=== PATIENT | male | born 1980 | race Hispanic/Latino ===

== ENCOUNTER 2022-09-14 17:24 | Inpatient (IN) | payer BC ==
--- NOTE | 2022-09-14 17:52 | RAD REPORT ---
EXAM DESCRIPTION: RAD - Chest Single View - 09/14/2022 5:46 pm CLINICAL HISTORY: CHEST PAIN Chest pain. COMPARISON: <Comparisons> FINDINGS: Portable technique limits examination quality. The lungs are grossly clear. The heart is normal in size. No displaced fractures. IMPRESSION: No acute intrathoracic process suspected.
[2022-09-14 17:59] LABS: Absolute Lymphocytes (CBC) 1.1 K/uL (0.7-4.9); Hematocrit 48.6 % (39.6-49.0); Lymphocytes % 6.6 % (15.3-44.8); MPV 8.6 fL (7.6-11.3); RBC Red Blood Cell Count 5.52 M/uL (4.33-5.43)
[2022-09-14] MEDS ORDERED: ACETAMINOPHEN 500 MG TAB ONE (18:00)
[2022-09-14] MEDS ORDERED: MORPHINE 4 MG/ML SYR ONE (18:01)
[2022-09-14] MEDS ORDERED: ONDANSETRON 4 MG/2 ML VIAL ONE ×2 (18:01→20:52)
[2022-09-14] MEDS ORDERED: FAMOTIDINE 20 MG/2 ML VIAL IV ONE (18:01)
[2022-09-14] MEDS ORDERED: NA CHLORIDE 0.9% 1,000 ML ONE ×3 (18:01→22:56)
[2022-09-14 18:22] LABS: ALT/SGPT 36 U/L (16-61); Albumin 3.8 g/dL (3.4-5.0); Alkaline Phosphatase 83 U/L (45-117); BUN Blood Urea Nitrogen 19 mg/dL (7-18); Bicarbonate 26 mEq/L (21-32); Bilirubin Total 1.1 mg/dL (0.2-1.0); Glomerular Filtration Rate 111 ml/min (=/>90); Glucose Level 203 mg/dL (74-106); Lipase 22 U/L (13-75); Protein, Total 7.5 g/dL (6.4-8.2); Sodium Level 136 mEq/L (136-145)
[2022-09-14 18:23] LABS: AST/SGOT 16 U/L (15-37); Potassium 3.9 mEq/L (3.5-5.1); Troponin High Sensitivity < 3.0 pg/mL (<58.9)
--- NOTE | 2022-09-14 19:39 | RAD REPORT ---
EXAM DESCRIPTION: CTAbdomen Pelvis W Contrast - 09/14/2022 7:32 pm CLINICAL HISTORY: Abdominal pain. ABD PAIN COMPARISON: <Comparisons> TECHNIQUE: Biphasic CT imaging of the abdomen and pelvis was performed with 100 ml non-ionic IV cont rast. All CT scans are performed using dose optimization technique as appropriate and may include automated exposure control or mA/KV adjustment according to patient size. FINDINGS: The lung bases are clear.Small hiatal hernia. The liver, spleen, pancreas, adrenal glands and kidneys are within normal limits. No bowel obstruction, free air, free fluid or abscess. Appendix is dilated to 15 mm with moderate leung rrounding fluid compatible with acute appendicitis. No evidence of significant lymphadenopathy. No suspicious bony findings. IMPRESSION: Acute appendicitis.
--- NOTE | 2022-09-14 20:04 | EDPHYS ---
Physician Documentation [facility] Name: Phillip Post Age: 41 yrs Sex: Male : 1980 Arrival Date: 09/14/2022 Time: 17:24 Bed 4 Private MD: ED Physician Wilfrido Mccoy HPI: 09/14 17:47 This 41 yrs old Male presents to ER via Ambulatory with complaints of RLQ kb PAIN, Chest Pain. 17:47 The patient presents with abdominal pain right lower quadrant. Onset: The kb symptoms/episode began/occurred last night. The symptoms do not radiate. Associated signs and symptoms: Pertinent positives: chest pain, Pertinent negatives: nausea, vomiting, and diarrhea, fever. The symptoms are described as constant. Modifying factors: The symptoms are alleviated by nothing, the symptoms are aggravated by pressure. Severity of pain: At its worst the pain was moderate in the emergency department the pain is unchanged. The patient has not experienced similar symptoms in the past. The patient has not recently seen a physician. Pt reports RLQ pain and left chest pain that started at 2100 last night. Denies f/n/v/d, shortness of breath. . Historical: - Allergies: 17:32 No Known Allergies; ld1 - PMHx: 17:32 Hypertensive disorder; Hypercholesterolemia; Diabetes mellitus; ld1 - Immunization history:: Adult Immunizations up to date, Client reports receiving the 2nd dose of the Covid vaccine. - Social history:: Smoking status: Patient denies any tobacco usage or history of. Patient/guardian denies using alcohol. ROS: 17:46 Constitutional: Negative for fever, chills, and weight loss. kb 17:46 Cardiovascular: Positive for chest pain, Negative for edema, orthopnea, palpitations, paroxysmal nocturnal dyspnea. 17:46 Abdomen/GI: Positive for abdominal pain, Negative for nausea, vomiting, and diarrhea. 17:46 All other systems are negative. Exam: 17:46 Constitutional: This is a well developed, well nourished patient who is awake, alert, kb and in no acute distress. Head/Face: Normocephalic, atraumatic. ENT: Moist Mucous membranes Cardiovascular: Regular rate and rhythm with a normal S1 and S2. No gallops, murmurs, or rubs. No pulse deficits. Respiratory: Respirations even and unlabored. No increased work of breathing. Talking in full sentences Skin: Warm, dry with normal turgor. Normal color. MS/ Extremity: Pulses equal, no cyanosis. Neurovascular intact. Full, normal range of motion. Neuro: Awake and alert, GCS 15, oriented to person, place, time, and situation. Moves all extremities. Normal gait. 17:46 Abdomen/GI: Inspection: abdomen appears normal, Bowel sounds: normal, Palpation: soft, in all quadrants, moderate abdominal tenderness, in the right lower quadrant, Indicators: McBurney's point is tender. 17:49 ECG was reviewed by the Attending Physician. kb Vital Signs: 17:31 BP 160 / 87; Pulse 104; Resp 18; Temp 100.8(O); Pulse Ox 98% on R/A; Weight 97.52 kg; ld1 Height 5 ft. 8 in. ; Pain 10/10; 18:04 BP 127 / 73; Pulse 90; Resp 18; Pulse Ox 100% ; mb9 18:46 BP 119 / 78; Pulse 92; Resp 18; Temp 99.3(O); Pulse Ox 100% on R/A; mb9 20:43 BP 135 / 87; Pulse 91; Resp 17; Pulse Ox 99% ; vc1 17:31 Body Mass Index 32.69 (97.52 kg, 172.72 cm) ld1 17:31 Pain Scale: Adult ld1 MDM: 17:30 Patient medically screened. kb 17:46 Differential diagnosis: nephrolithiasis, diverticulitis, appendicitis. Data reviewed: kb vital signs, nurses notes. 19:19 Transition of care: After a detail discussion of the patient's case, care is kb transferred to Fan PAVON. 21:19 ED course: patient meets SIRS criteria: source of infection is appendix, WBC >16, temp cp of 100.8. 09/14 17:33 Order name: CBC with Diff; Complete Time: 18:25 kb 09/14 19:57 Interpretation: Normal except: WBC 16.80; RBC 5.52; FREDRICK% 87.2; LYM% 6.6; NEUT A 14.6. cp 09/14 17:33 Order name: CMP; Complete Time: 18:25 kb 09/14 17:33 Order name: Lipase; Complete Time: 18:25 kb 09/14 17:33 Order name: Troponin High Sensitivity; Complete Time: 18:25 kb 09/14 19:57 Order name: Blood Culture Adult (2) 09/14 19:57 Order name: Lactate w/ 2H reflex if indic.; Complete Time: 21:26 cp 09/14 17:33 Order name: CT Abd/Pelvis - IV Contrast Only; Complete Time: 19:53 kb 09/14 19:53 Interpretation: Report reviewed. 09/14 17:33 Order name: Chest Single View XRAY; Complete Time: 17:54 kb 09/14 17:33 Order name: EKG; Complete Time: 17:34 kb 09/14 17:33 Order name: IV Saline Lock; Complete Time: 17:56 kb 09/14 17:33 Order name: Labs collected and sent; Complete Time: 17:56 kb 09/14 17:33 Order name: EKG - Nurse/Tech; Complete Time: 18:05 kb 09/14 19:59 Order name: NPO; Complete Time: 20:46 cp EC:49 Rate is 90 beats/min. Rhythm is regular. QRS [place] is Normal. AL interval is normal at kb 140 msec. QRS interval is normal at 100 msec. QT interval is normal at 450 msec. Administered Medications: 17:45 Drug: NS 0.9% IV 1000 ml Route: IV; Rate: 1 bolus; Site: left antecubital; mb9 18:54 Follow up: Response: No adverse reaction; IV Status: Completed infusion mb9 17:45 Drug: Acetaminophen PO 1000 mg Route: PO; mb9 18:35 Follow up: Response: No adverse reaction mb9 17:47 Drug: Ondansetron IVP 4 mg Route: IVP; Site: left antecubital; mb9 18:35 Follow up: Response: No adverse reaction mb9 17:50 Drug: Famotidine IVP 20 mg Route: IVP; Site: left antecubital; mb9 18:35 Follow up: Response: No adverse reaction mb9 17:55 Drug: morphine IVP or IV 4 mg Route: IVP; Infused Over: 4 mins; Site: left antecubital; mb9 18:35 Follow up: Response: No adverse reaction mb9 20:52 Drug: Piperacillin-Tazobactam IVPB 3.375 grams {Note: GAVE TO OR NURSE TO ADMINISTER vc1 DURING SURGERY.} Route: IVPB; Infused Over: 60 mins; Site: Other; 20:53 Follow up: IV Status: CONTINUED TO OR vc1 20:52 Drug: morphine IVP or IV 2 mg Route: IVP; Infused Over: 4 mins; Site: left antecubital; vc1 21:05 Follow up: Response: Administer at transfer to OR vc1 21:04 Not Given (PT WENT TO [facility]): morphine IVP or IV 2 mg IVP once over 4 mins vc1 Disposition Summary: 09/14/22 20:04 Hospitalization Ordered Hospitalization Status: Inpatient Admission cp Provider: Marry Palacio cp Location: Telemetry/MedSurg (Inpatient) cp Condition: Stable cp Problem: new cp Symptoms: have improved cp Bed/Room Type: Standard cp Room Assignment: 215(09/14/22 20:52) cg Diagnosis - Acute appendicitis with localized peritonitis cp - Sepsis, unspecified organism cp Forms: - Medication Reconciliation Form cp - SBAR form cp Signatures: Dispatcher [employer] EDMS Giana Baker FNP-Tania TOBINP-Fan Redding PA PA cp Garcia, Cindy, RN RN cg Yamila Birmingham RN RN ld1 Caitlin Enriquez RN RN vc1 Marry Palacio PA-C PAReji sb4 Alma Rice RN RN mb9 Corrections: (The following items were deleted from the chart) 20:52 20:04 cp cg
--- NOTE | 2022-09-14 20:04 | ER ---
Nurse's Notes [facility] Name: Phillip Post Age: 41 yrs Sex: Male : 1980 Arrival Date: 09/14/2022 Time: 17:24 Bed 4 Private MD: Diagnosis: Acute appendicitis with localized peritonitis;Sepsis, unspecified organism Presentation: 09/14 17:31 Chief complaint: Patient states: RLQ pain since this morning. Upper left chest pain. ld1 Coronavirus screen: At this time, the client does not indicate any symptoms associated with coronavirus-19. Ebola Screen: No symptoms or risks identified at this time. Initial Sepsis Screen: Does the patient meet any 2 criteria? No. Patient's initial sepsis screen is negative. Does the patient have a suspected source of infection? No. Patient's initial sepsis screen is negative. Risk Assessment: Do you want to hurt yourself or someone else? Patient reports no desire to harm self or others. Onset of symptoms was September 14, 2022 at 17:32. 17:31 Method Of Arrival: Ambulatory ld1 17:31 Acuity: KADE 3 ld1 Triage Assessment: 17:32 General: Appears in no apparent distress. uncomfortable, Behavior is calm, cooperative, ld1 appropriate for age. Pain: Complains of pain in anterior aspect of left upper chest, left breast and right lower quadrant Pain does not radiate. Pain currently is 10 out of 10 on a pain scale. Quality of pain is described as throbbing. EENT: No signs and/or symptoms were reported regarding the EENT system. Neuro: Level of Consciousness is awake, alert, obeys commands, Oriented to person, place, time, situation. Cardiovascular: Capillary refill < 3 seconds Patient's skin is warm and dry. Respiratory: Airway is patent Respiratory effort is even, unlabored. GI: Abdomen is flat, non-distended, Reports lower abdominal pain. : No signs and/or symptoms were reported regarding the genitourinary system. Derm: No signs and/or symptoms reported regarding the dermatologic system. Musculoskeletal: No signs and/or symptoms reported regarding the musculoskeletal system. Historical: - Allergies: 17:32 No Known Allergies; ld1 - PMHx: 17:32 Hypertensive disorder; Hypercholesterolemia; Diabetes mellitus; ld1 - Immunization history:: Adult Immunizations up to date, Client reports receiving the 2nd dose of the Covid vaccine. - Social history:: Smoking status: Patient denies any tobacco usage or history of. Patient/guardian denies using alcohol. Screenin:08 [facility] ED Fall Risk Assessment (Adult) History of falling in the last 3 months, mb9 including since admission No falls in past 3 months (0 pts) Confusion or Disorientation No (0 pts) Intoxicated or Sedated No (0 pts) Impaired Gait No (0 pts) Mobility Assist Device Used No (0 pt) Altered Elimination No (0 pt) Score/Fall Risk Level 0 - 2 = Low Risk Oriented to surroundings, Maintained a safe environment, Educated pt \T\ family on fall prevention, incl call for assistance when getting out of bed. Abuse screen: Denies threats or abuse. Nutritional screening: No deficits noted. Tuberculosis screening: No symptoms or risk factors identified. Assessment: 18:03 General: Appears uncomfortable, Behavior is calm, cooperative. Pain: Complains of pain mb9 in right lower quadrant Pain radiates to chest Pain currently is 10 out of 10 on a pain scale. Quality of pain is described as throbbing, Pain began 1 day ago. Is continuous. Neuro: Elliott Agitation-Sedation Scale (RASS): 0 - Alert and Calm Level of Consciousness is awake, alert, obeys commands, Oriented to person, place, time, situation, Appropriate for age. Cardiovascular: Heart tones S1 S2 present Patient's skin is warm and dry. Rhythm is regular. Respiratory: Airway is patent Respiratory effort is even, unlabored, Respiratory pattern is regular, symmetrical, Breath sounds are clear bilaterally. GI: Abdomen is round non-distended, Bowel sounds present X 4 quads. Abd is soft Abdomen is tender to palpation in right lower quadrant Reports nausea. Derm: Skin is pink, warm \T\ dry. Musculoskeletal: Range of motion: intact in all extremities. 19:37 General: Appears in no apparent distress. comfortable, Behavior is calm, cooperative. lg3 Pain: Complains of pain in right lower quadrant Pain currently is 4 out of 10 on a pain scale. Neuro: No deficits noted. Elliott Agitation-Sedation Scale (RASS): 0 - Alert and Calm Level of Consciousness is awake, alert, obeys commands, Oriented to person, place, time, situation. Cardiovascular: No deficits noted. Denies chest pain, shortness of breath, Capillary refill < 3 seconds Clubbing of nail beds is absent JVD is absent Patient's skin is warm and dry. Respiratory: No deficits noted. Airway is patent Respiratory effort is even, unlabored, Respiratory pattern is regular, symmetrical. GI: No deficits noted. Abdomen is round non-distended, Reports lower abdominal pain. : No deficits noted. No signs and/or symptoms were reported regarding the genitourinary system. EENT: No deficits noted. No signs and/or symptoms were reported regarding the EENT system. Derm: No deficits noted. No signs and/or symptoms reported regarding the dermatologic system. Skin is intact, is healthy with good turgor, Skin is dry, Skin is normal, Skin temperature is warm. Musculoskeletal: No deficits noted. No signs and/or symptoms reported regarding the musculoskeletal system. Circulation, motion, and sensation intact. Range of motion: intact in all extremities. 20:50 Reassessment: No changes from previously documented assessment. Patient and/or family vc1 updated on plan of care and expected duration. Pain level reassessed. Patient is alert, oriented x 3, equal unlabored respirations, skin warm/dry/pink. Patient states symptoms have not improved. OR Nurse at bedside to take pt to OR. Vital Signs: 17:31 BP 160 / 87; Pulse 104; Resp 18; Temp 100.8(O); Pulse Ox 98% on R/A; Weight 97.52 kg; ld1 Height 5 ft. 8 in. ; Pain 10/10; 18:04 BP 127 / 73; Pulse 90; Resp 18; Pulse Ox 100% ; mb9 18:46 BP 119 / 78; Pulse 92; Resp 18; Temp 99.3(O); Pulse Ox 100% on R/A; mb9 20:43 BP 135 / 87; Pulse 91; Resp 17; Pulse Ox 99% ; vc1 17:31 Body Mass Index 32.69 (97.52 kg, 172.72 cm) ld1 17:31 Pain Scale: Adult ld1 ED Course: 17:26 Patient arrived in ED. im 17:30 G[facility] Baker F[facility]-C [facility] kb 17:30 Wilfrido Mccoy MD is Attending Physician. kb 17:30 EKG done, by ED staff, reviewed by Giana ROTHMAN. mb9 17:32 Triage completed. ld1 17:32 Arm band placed on right wrist. ld1 17:40 Kelvin Thomas, RN is Primary Nurse. bp 17:48 Chest Single View XRAY In Process Unspecified. EDMS 17:56 CBC with Diff Sent. zm 17:56 CMP Sent. zm 17:56 Lipase Sent. zm 17:56 Inserted saline lock: 20 gauge in left antecubital area, using aseptic technique. Blood zm collected. 18:03 Primary Nurse role handed off by Kelvin Thomas, NANCY mb9 18:03 Alma Rice, NANCY is Primary Nurse. mb9 18:05 Placed in gown. Bed in low position. Call light in reach. Side rails up X 1. Client mb9 placed on continuous cardiac and pulse oximetry monitoring. NIBP monitoring applied. clinical research monitor on. 18:09 No provider procedures requiring assistance completed. mb9 19:18 PHCP role handed off by Giana Baker FNP-C cp 19:18 Fan Kan PA is PHCP. cp 19:34 CT Abd/Pelvis - IV Contrast Only In Process Unspecified. EDMS 20:03 Marry Palacio PA-C is Hospitalizing Provider. cp 21:05 Blood Culture Adult (2) Sent. vc1 21:05 Lactate w/ 2H reflex if indic. Sent. vc1 Administered Medications: 17:45 Drug: NS 0.9% IV 1000 ml Route: IV; Rate: 1 bolus; Site: left antecubital; mb9 18:54 Follow up: Response: No adverse reaction; IV Status: Completed infusion mb9 17:45 Drug: Acetaminophen PO 1000 mg Route: PO; mb9 18:35 Follow up: Response: No adverse reaction mb9 17:47 Drug: Ondansetron IVP 4 mg Route: IVP; Site: left antecubital; mb9 18:35 Follow up: Response: No adverse reaction mb9 17:50 Drug: Famotidine IVP 20 mg Route: IVP; Site: left antecubital; mb9 18:35 Follow up: Response: No adverse reaction mb9 17:55 Drug: morphine IVP or IV 4 mg Route: IVP; Infused Over: 4 mins; Site: left antecubital; mb9 18:35 Follow up: Response: No adverse reaction mb9 20:52 Drug: Piperacillin-Tazobactam IVPB 3.375 grams {Note: GAVE TO OR NURSE TO ADMINISTER vc1 DURING SURGERY.} Route: IVPB; Infused Over: 60 mins; Site: Other; 20:53 Follow up: IV Status: CONTINUED TO OR vc1 20:52 Drug: morphine IVP or IV 2 mg Route: IVP; Infused Over: 4 mins; Site: left antecubital; vc1 21:05 Follow up: Response: Administer at transfer to OR vc1 21:04 Not Given (PT WENT TO [facility]): morphine IVP or IV 2 mg IVP once over 4 mins vc1 Medication: 18:05 VIS not applicable for this client. mb9 Outcome: 20:04 Decision to Hospitalize by Provider. cp 21:26 Patient left the ED. sb4 Signatures: Dispatcher [employer] EDMS Giana Baker, PROJECT OFFICER-C PROJECT OFFICER-Fan Redding PA PA cp Peltier, Brian, RN NANCY bp Radha Kaba RN RN lg3 Yamila Birmingham RN RN ld1 Caitlin Enriquez RN RN 1 Karin Post Sophia PA-Tania PA-C sb4 Alma Rice RN RN mb9 Rosario Berman
--- NOTE | 2022-09-14 20:16 | P.HP ---
Certification for Inpatient Patient admitted to: Inpatient With expected LOS: <2 Midnights Patient will require the following post-hospital care: None Practitioner: I am a practitioner with admitting privileges, knowledge of patient current condition, hospital course, and medical plan of care. Services: Services provided to patient in accordance with Admission requirements found in Title 42 Section 412.3 of the Code of Federal Regulations Patient History Date of Service: 09/14/22 Primary Care Provider: Sara Hall Reason for admission: Appendicitis History of Present Illness: Mr. Post is a 41 year old male with past medical history of hypertension, hyperlipidemia, and non-insulin dependent type 2 diabetes who presented to the emergency department with complaints of right lower quadrant abdominal pain and left sided chest pain that began this morning. His EKG was unremarkable, troponin negative. Labs are significant for leukocytosis. Lactate pending. He does meet sepsis criteria as he was tachycardic and febrile. CT abdomen pelvis showed "Appendix is dilated to 15 mm with moderate surrounding fluid compatible with acute appendicitis." Dr Post was contacted and will take patient to OR tonight for laprascopic appendectomy. He was started on zosyn in the emergency department. Will admit for further management. Home medications list reviewed: Yes - Past Medical/Surgical History Diabetic: Yes -: Hypertension -: Hyperlipidemia -: Type 2 Diabetes, Non-Insulin Dependent Past Surgical History: Patient denies surgical history Psychosocial/ Personal History: Patient is . - Family History Family History: Reviewed- Non-Contributory - Social History Smoking Status: Never smoker Alcohol use: No CD- Drugs: No Caffeine use: Yes Place of Residence: Home Review of Systems 10-point ROS is otherwise unremarkable Cardiovascular: Chest Pain Gastrointestinal: Abdominal Pain Physical Examination - Vital Signs Temperature: 99.3 F Blood Pressure: 119/78 Pulse: 92 Respirations: 18 Pulse Ox (%): 100 - Physical Exam General: Alert, In no apparent distress HEENT: Atraumatic, EOMI, Sclerae nonicteric Neck: Supple, 2+ carotid pulse no bruit Respiratory: Clear to auscultation bilaterally, Normal air movement Cardiovascular: Regular rate/rhythm, Normal S1 S2 Gastrointestinal: No rebound, No guarding, Tenderness (RLQ) Musculoskeletal: No tenderness Integumentary: No rashes Neurological: Normal speech, Normal affect - Studies Laboratory Data (last 24 hrs) 09/14/22 17:38: Sodium 136, Potassium 3.9, BUN 19 H, Creatinine 0.86, Glucose 203 H, Total Bilirubin 1.1 H, AST 16, ALT 36, Alkaline Phosphatase 83, Lipase 22 09/14/22 17:38: WBC 16.80 H, Hgb 16.2, Hct 48.6, Plt Count 176 Assessment and Plan - Problems (Diagnosis) (1) Acute appendicitis Current Visit: Yes Status: Acute Qualifiers: Acute appendicitis type: with localized peritonitis Appendicitis gangrene presence: without gangrene Appendicitis perforation presence: without perforation Appendicitis abscess presence: without abscess Qualified Code(s): K35.30 - Acute appendicitis with localized peritonitis, without perforation or gangrene (2) Sepsis Current Visit: Yes Status: Acute Qualifiers: Sepsis type: sepsis due to unspecified organism Sepsis acute organ dysfunction status: without acute organ dysfunction Qualified Code(s): A41.9 - Sepsis, unspecified organism (3) Hypertension Current Visit: Yes Status: Chronic Qualifiers: Hypertension type: primary hypertension Qualified Code(s): I10 - Essential (primary) hypertension (4) Hyperlipidemia Current Visit: Yes Status: Chronic Qualifiers: Hyperlipidemia type: mixed hyperlipidemia Qualified Code(s): E78.2 - Mixed hyperlipidemia (5) Type 2 diabetes mellitus Current Visit: Yes Status: Chronic Qualifiers: Diabetes mellitus computer terminal operator insulin use: without computer terminal operator use Diabetes mellitus complication status: with hyperglycemia Qualified Code(s): E11.65 - Type 2 diabetes mellitus with hyperglycemia - Plan Patient is admitted for further management of acute appendicitis. Dr. Post to take patient to OR tonight for laprascopic appendectomy. Continue antibiotics, PRN pain medications and antiemetics. Meets sepsis criteria with tachycardia, fever, leukocytosis. Lactate pending. Blood cultures obtained. Monitor on telemetry given chest pain. Repeat troponin in AM. Will additionally check lipid panel, A1c, TSH. Glucose monitoring and control with sliding scale. Monitor and replete electrolytes per protocol. Reconcile and continue home medications when cleared for PO intake. Lovenox for VTE prophylaxis. Full code. Discharge Plan: Home Plan to discharge in: 48 Hours - Advance Directives Does patient have a Living Will: No Does patient have a Durable POA for Healthcare: No - Code Status/Comfort Care Code Status Assessed: Yes Code Status: Full Code Physician Review: Patient Assessed, Agree with Above Assessment and Plan Critical Care: No Time Spent Managing Pts Care (In Minutes): 50
[2022-09-14] MEDS ORDERED: ONDANSETRON 4 MG/2 ML VIAL IV PRN (20:39)
[2022-09-14] MEDS ORDERED: ROCURONIUM 50 MG/5 ML VIAL IV ONE ×2 (20:50→20:52)
[2022-09-14] MEDS ORDERED: LIDOCAINE 1% MPF 5 ML VIAL ONE ×2 (20:50→20:52)
[2022-09-14] MEDS ORDERED: FENTANYL CITR 100 MCG/2 ML ONE (20:50)
[2022-09-14] MEDS ORDERED: MIDAZOLAM HCL 2 MG/2 ML INJ ONE (20:50)
[2022-09-14] MEDS ORDERED: GLYCOPYRROLATE 0.2 MG/ML SYR ONE (20:51)
[2022-09-14] MEDS ORDERED: dexAMETHasone 4 MG/ML VIAL ONE (20:51)
[2022-09-14] MEDS ORDERED: KETOROLAC 30 MG/ML INJ ONE (20:52)
[2022-09-14] MEDS ORDERED: propofoL 200 MG/20 ML VIAL IV ONE (20:56)
[2022-09-14] MEDS ORDERED: NA CHLORIDE 0.9% 100 ML ONE (20:57)
[2022-09-14] MEDS ORDERED: PIPERACIL/TAZO 3.375 GM VIAL IV ONE (20:57)
[2022-09-14] MEDS ORDERED: MORPHINE 2 MG/ML SYR ONE (20:57)
[2022-09-14] MEDS ORDERED: NEOSTIGMINE 1 MG/ML -10 ML VIAL ONE (20:59)
[2022-09-14] MEDS: NA CHLORIDE 0.9% 1,000 ML IV SCH (21:00)
--- NOTE | 2022-09-14 21:35 | P.BOP ---
Preoperative diagnosis: diabetes, peritonitis, acute appendicitis, htn Postoperative diagnosis: same Primary procedure: Laparoscopic appendectomy Estimated blood loss: <10cc Specimen: citlalli Findings: as above Anesthesia: General Transferred to: Recovery Room Condition: Good
--- NOTE | 2022-09-15 00:21 | CON ---
Date of Consultation: 09/14/2022 Reason For Service: Acute appendicitis. History Of Present Illness: This is the case of a 41-year-old patient with history of hypertension, hyperlipidemia, diabetes, who presented to the ER with abdominal pain that started yesterday, right l ower quadrant, associated with anorexia. The patient usually does not miss work. Today, he did not feel like going to work. He ate some food yesterday at home with his family. Nobody else got sick. No dysuria, hematuria, hematochezia, or melena. No recent traveling out of the country. No family member is sick at home. No previous colonoscopies. Review of Systems: See HPI. Include nausea, low-grade fever, vomiting, abdominal pain. Ten points otherwise unremarkab le. Past Medical History: Hyperlipidemia, hypertension, diabetes. Past Surgical History: None. Social History: He does not smoke. He does not drink alcohol. Allergies: NO KNOWN ALLERGIES. Physical Examination: General: The patient is awake, alert. HEENT: Pupils are equal and reactive. Anicteric. Neck: Supple. Chest: Clear. Heart: S1, S2. Abdomen: Abdominal tenderness with periumbilical right lower quadrant with peritonitis present. Rov sing sign positive. Psoas signs positive. Genitalia and Rectal: Deferred. Extremities: Good capillary refill. Laboratory Data: Blood work shows a WBC count of 16.8, hemoglobin of 16.2, platelets of 176. Glucos e of 203, BUN is 19, lipase 72. CAT scan of the abdomen and pelvis interpreted by Dr. Nowak as acute appendicitis. Assessment: This is a 41-year-old patient with multiple medical problems including acute appendiciti s, the benefits, alternatives, and risks of laparoscopy, possible open appendectomy fully explained, which include, but not limited to infection, bleeding, damage to adjacent structures, anesthesia comp lication, abscess, OK, and even . He also understands this may not relieve any symptoms. He mi ght need more than one surgical intervention. He understands also the importance of following up wit h his primary doctor for his diabetes control. HM/MODL Voice ID: [id number] Report ID: [id number]
[2022-09-15 00:43] VITALS: BMI 31.1
[2022-09-15] MEDS: PIPER TAZO 3.375 GM in NA CHLORIDE 0.9% 100 ML IV SCH ×3 (00:45→16:37)
[2022-09-15] MEDS: INSULIN -REGULAR HUMAN 50 UNIT/0.5 ML ML SQ SCH ×4 (00:46→18:00)
[2022-09-15] MEDS: MORPHINE 4 MG/ML SYR IV PRN ×2 (00:53→04:40)
--- NOTE | 2022-09-15 02:52 | OP ---
Date of Procedure: 09/14/2022 Surgeon: Ralph Post MD Preoperative Diagnoses: Peritonitis, abdominal pain, acute appendicitis, hypertension, diabetes. Postoperative Diagnoses: Perforated appendicitis, peritonitis. Procedures: Laparoscopic perforated appendectomy. Anesthesia: General plus local. Complications: None. Findings: Perforated appendicitis at the mid third of the appendix with fixed contamination. Complications: None. Indication: This is the case of a 41-year-old patient, who comes to us with acute abdominal pain. F negraly explained the benefits, alternatives, and risks of laparoscopic possible open appendectomy after I fully diagnosed, which include, but not limited to, infection, bleeding, damage to adjacent struct ures, anesthesia complications, abscess, OR, and even . He also understands this may not reliev e symptoms. He might need more than one surgical intervention. He understood, signed a consent. Th e patient was emergently booked in OR. Procedure In Detail: The patient was brought to the operating room, placed in supine position. Anes thesia was without complication. Abdominal area was prepped and draped in the usual sterile fashion. Local anesthesia was applied followed by sharp incision in the skin in the periumbilical region. I ncision was carried down to fascia, which was opened under direct vision. Vicryl #1 placed inside th e fascia. Marisa trocar was carefully introduced. Pneumoperitoneum was obtained. I placed 2 more t rocars, 5 mm each one of them, 1 in the suprapubic area, another one in the left lower quadrant using the same technique, which consisted of local anesthetic, sharp incision of the skin and introduction of the trocars under direct vision. This allowed me to visualize the area and immediately upon ente ring the abdomen, noted the patient to have peritonitis. We also unfortunately saw some fecal contam ination at the mid part of the appendix. Once we explored the area, we noticed the patient to have i nflammation of peritonitis of the mesoappendix, very friable area. We noticed that his perforation i s about the connection between the first, third, and second third of the appendix. At this moment, w e have to use LigaSure to be able to release some adhesions the patient had in that region and then a fter that, we released the appendix. We were able to find the space and create a window in the base of the appendix and transect that with an Endo ANN 45 mm nonvascular. We have to do this sequentiall y since we have to get very close to the cecum to obtain negative margins. Further hemostasis was ob tained with the help of hemoclips. Profuse irrigation of the area was done with at least 4 L of flui d. Suction was done in that area due to the contamination and we proceeded to leave a CORRY drain over there, exiting to one of the trocar sites. We inspected the area until we have complete hemostasis a nd that was with the help of the LigaSure and also the hemoclips as described before. At that moment , I proceeded to remove the trocars under direct vision. Deflated the pneumoperitoneum. Closed the fascia with #1 Vicryl. Irrigated subcutaneous tissue and closed that with 3-0 chromic and barry. CORRY was connected to bulb suction and secured in place with 3-0 nylon. The patient will remain in the hospital for several days, bowel rest, we expect peritonitis, we expect ileus, and also, assess the patient on his diabetes. HM/MODL Voice ID: [id number] Report ID: [id number]
[2022-09-15 04:02] LABS: Absolute Lymphocytes (CBC) 0.7 K/uL (0.7-4.9); Lymphocytes % 7.7 % (15.3-44.8); MPV 9.6 fL (7.6-11.3); RBC Red Blood Cell Count 4.94 M/uL (4.33-5.43)
[2022-09-15 04:36] LABS: BUN Blood Urea Nitrogen 19 mg/dL (7-18); Bicarbonate 24 mEq/L (21-32); Glomerular Filtration Rate 115 ml/min (=/>90); Glucose Level 203 mg/dL (74-106); Magnesium 1.9 mg/dL (1.6-2.4); Potassium 3.6 mEq/L (3.5-5.1); Sodium Level 138 mEq/L (136-145); Thyroid Stimulating Hormone 0.253 uIU/mL (0.358-3.740); Troponin High Sensitivity < 3.0 pg/mL (<58.9)
[2022-09-15 04:37] LABS: Phosphorus 1.4 mg/dL (2.5-4.9)
[2022-09-15] MEDS ORDERED: POTASSIUM PHOS IN 0.9 % NACL 15 MMOL/250 ML BAG IV ONE (04:46)
[2022-09-15] MEDS ORDERED: ENOXAPARIN 40 MG/0.4 ML SQ SCH (09:00)
[2022-09-15] MEDS: NA CHLORIDE 0.9% 1,000 ML IV SCH (09:14)
[2022-09-15] MEDS ORDERED: POTASSIUM CL SA 10 MEQ TAB PO ONE (10:00)
--- NOTE | 2022-09-15 12:36 | EKG ---
Test Date: 2022-09-14 Test Time: 17:45:58 Title Closer: MB MEASUREMENT RESULTS: Intervals: Rate: 90 SD: 140 QRSD: 100 QT: 368 QTc: 450 [place]: P: 56 SD: 140 QRS: -28 T: 54 INTERPRETIVE STATEMENTS: Normal sinus rhythm Normal ECG Compared to ECG 09/06/2012 09:16:02 Left ventricular hypertrophy no longer present Electronically Signed On 09-15-22 12:34:41 CDT by Karlos Delgado
[2022-09-15] MEDS: HYDROCODONE/APAP 5/325 MG TAB PO PRN ×2 (13:50→20:00)
--- NOTE | 2022-09-15 14:07 | P.PN ---
Subjective Date of Service: 09/15/22 Primary Care Provider: Sara Hall Chief Complaint: Appendicitis Status post lap appendectomy last night. Patient states that he feels thirsty, otherwise no other complaint. No fever. Physical Examination - Vital Signs Temperature: 100.5 F Blood Pressure: 114/62 Pulse: 113 Respirations: 16 Pulse Ox (%): 91 - Studies Laboratory Data (last 24 hrs) 09/14/22 17:38: Sodium 136, Potassium 3.9, BUN 19 H, Creatinine 0.86, Glucose 203 H, Total Bilirubin 1.1 H, AST 16, ALT 36, Alkaline Phosphatase 83, Lipase 22 09/14/22 17:38: WBC 16.80 H, Hgb 16.2, Hct 48.6, Plt Count 176 Assessment And Plan - Current Problems (Diagnosis) (1) Acute appendicitis Current Visit: Yes Status: Acute Qualifiers: Acute appendicitis type: with localized peritonitis Appendicitis gangrene presence: without gangrene Appendicitis perforation presence: without p erforation Appendicitis abscess presence: without abscess Qualified Code(s): K35.30 - Acute appendicitis with localized peritonitis, without perforation or gangrene (2) Hypertension Current Visit: Yes Status: Chronic Qualifiers: Hypertension type: primary hypertension Qualified Code(s): I10 - Essential (primary) hypertension (3) Type 2 diabetes mellitus Current Visit: Yes Status: Chronic Qualifiers: Diabetes mellitus 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 Surgery Dr. Post is concerned about impending peritonitis and ileus. Aggressive antibiotic therapy. Ice chips and sips. Serial abdominal examination Insulin sliding scale for glucose management. Activity as tolerated. Monitor and correct electrolytes as needed.
[2022-09-15] MEDS: D5NS KCL 20MEQ 20 MEQ/1,000 ML BAG IV SCH (16:44)
[2022-09-15 20:31] LABS: Specific Gravity > 1.030 (1.005-1.030); Urine Bacteria <20 /HPF (<20); Urine Bilirubin NEGATIVE (Negative); Urine Blood Negative (Negative); Urine Clarity Clear (Clear); Urine Color Yellow (Yellow); Urine Glucose 4+ (Over) (Negative); Urine Mucus 2+ /HPF (None Seen); Urine Protein 1+ (Negative); Urine Urobilinogen Normal (Normal); Urine pH 5.5 (5.0-7.0)
[2022-09-16] MEDS: D5NS KCL 20MEQ 20 MEQ/1,000 ML BAG IV SCH ×3 (00:35→18:20)
[2022-09-16] MEDS: PIPER TAZO 3.375 GM in NA CHLORIDE 0.9% 100 ML IV SCH ×3 (00:35→18:20)
[2022-09-16] MEDS: HYDROCODONE/APAP 5/325 MG TAB PO PRN ×2 (00:41→06:27)
[2022-09-16 03:00] LABS: Absolute Lymphocytes (CBC) 1.4 K/uL (0.7-4.9); Hematocrit 40.2 % (39.6-49.0); Lymphocytes % 13.9 % (15.3-44.8); MCV 88.7 fL (80-100); MPV 8.6 fL (7.6-11.3); RBC Red Blood Cell Count 4.53 M/uL (4.33-5.43)
[2022-09-16 03:18] LABS: Potassium 3.6 mEq/L (3.5-5.1)
[2022-09-16] MEDS: INSULIN -REGULAR HUMAN 50 UNIT/0.5 ML ML SQ SCH ×5 (06:00→23:43)
[2022-09-16] MEDS: ENOXAPARIN 40 MG/0.4 ML SQ SCH (10:53)
[2022-09-16] MEDS: MORPHINE 4 MG/ML SYR IV PRN ×3 (10:53→23:51)
--- NOTE | 2022-09-16 13:36 | P.PN ---
Subjective Date of Service: 09/16/22 Primary Care Provider: Sara Hall Chief Complaint: Appendicitis Status post lap appendectomy 09/15. Patient has no new complaint. He states his abdominal pain is better today. No fever. Physical Examination - Vital Signs Temperature: 97.9 F Blood Pressure: 117/68 Pulse: 106 Respirations: 16 Pulse Ox (%): 95 Assessment And Plan - Current Problems (Diagnosis) (1) Acute appendicitis Current Visit: Yes Status: Acute Qualifiers: Acute appendicitis type: with localized peritonitis Appendicitis gangrene presence: without gangrene Appendicitis perforation presence: without perforation Appendicitis abscess presence: without abscess Qualified Code(s): K35.30 - Acute appendicitis with localized peritonitis, without perforation or gangrene (2) Hypertension Current Visit: Yes Status: Chronic Qualifiers: Hypertension type: primary hypertension Qualified Code(s): I10 - Essential (primary) hypertension (3) Type 2 diabetes mellitus Current Visit: Yes Status: Chronic Qualifiers: Diabetes mellitus 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 Normal bowel sounds. Musculoskeletal: No tenderness Integumentary: No rashes Neurological: No focal motor deficit. Patient noted to have perforated appendix. Surgery Dr. Post is concerned about impending peritonitis and ileus. Blood culture is growing gram-negative rods. Continue IV Zosyn Repeat blood culture Infectious disease consult. Ice chips and sips. Serial abdominal examination Insulin sliding scale for glucose management. Activity as tolerated. Monitor and correct electrolytes as needed.
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
[2022-09-17] MEDS: PIPER TAZO 3.375 GM in NA CHLORIDE 0.9% 100 ML IV SCH ×2 (00:04→07:45)
[2022-09-17 03:17] LABS: Absolute Lymphocytes (CBC) 1.6 K/uL (0.7-4.9); Hematocrit 39.5 % (39.6-49.0); MCV 88.4 fL (80-100); MPV 8.7 fL (7.6-11.3); RBC Red Blood Cell Count 4.46 M/uL (4.33-5.43)
[2022-09-17 03:32] LABS: Phosphorus 1.4 mg/dL (2.5-4.9); Potassium 3.7 mEq/L (3.5-5.1)
[2022-09-17] MEDS ORDERED: POTASSIUM PHOS IN 0.9 % NACL 15 MMOL/250 ML BAG IV ONE (04:29)
[2022-09-17] MEDS: INSULIN -REGULAR HUMAN 50 UNIT/0.5 ML ML SQ SCH ×3 (06:00→17:54)
[2022-09-17] MEDS: D5NS KCL 20MEQ 20 MEQ/1,000 ML BAG IV SCH ×2 (07:00→11:09)
[2022-09-17] MEDS: MORPHINE 4 MG/ML SYR IV PRN (07:45)
[2022-09-17] MEDS: ENOXAPARIN 40 MG/0.4 ML SQ SCH (07:45)
--- NOTE | 2022-09-17 09:38 | PN ---
Date of Progress Note: 09/17/2022 Diagnosis: Perforated appendicitis. Patient is doing better. No nausea, no vomiting today. Started passing flatus. Afebrile. Physical Examination: Chest: Clear. Abdomen: Soft and depressible. Intact surgical site. Extremities: Good capillary refill. Blood work is reviewed. Plan: We are going to advance diet to full liquid diet. We anticipate discharge in the next 48 hour s if medically he is okay. The primary doctor is working on his diabetes medications. ESTRADA/YASIR Voice ID: [id number] Report ID: [id number]
[2022-09-17] MEDS: Meropenem 1,000 MG in NA CHLORIDE 0.9% 100 ML IV SCH ×2 (11:09→16:50)
[2022-09-17] MEDS: HYDROCODONE/APAP 5/325 MG TAB PO PRN ×3 (11:09→21:35)
--- NOTE | 2022-09-17 14:13 | P.PN ---
Subjective Date of Service: 09/17/22 Primary Care Provider: Sara Hall Chief Complaint: Appendicitis Status post lap appendectomy 09/15. Patient has no new complaint. He states his abdominal pain is under control. He reports no pain at rest but some pain with movement. No fever. Physical Examination - Vital Signs Temperature: 97.9 F Blood Pressure: 133/81 Pulse: 89 Respirations: 18 Pulse Ox (%): 96 Assessment And Plan - Current Problems (Diagnosis) (1) Acute appendicitis Current Visit: Yes Status: Acute Qualifiers: Acute appendicitis type: with localized peritonitis Appendicitis gangrene presence: without gangrene Appendicitis perforation presence: without perforation Appendicitis abscess presence: without abscess Qualified Code(s): K35.30 - Acute appendicitis with localized peritonitis, without perforation or gangrene (2) Hypertension Current Visit: Yes Status: Chronic Qualifiers: Hypertension type: primary hypertension Qualified Code(s): I10 - Essential (primary) hypertension (3) Type 2 diabetes mellitus Current Visit: Yes Status: Chronic Qualifiers: 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 Normal bowel sounds. Musculoskeletal: No tenderness Integumentary: No rashes Neurological: No focal motor deficit. Plan: S/P lap appendectomy for perforated appendix Surgery Dr. Post is concerned about impending peritonitis and ileus. Blood culture is growing ESBL E. coli. Antibiotics changed to IV meropenem Repeat blood culture shows no growth today Infectious disease input appreciated. Patient may need prolonged outpatient IV antibiotics. Surgery Dr. Post has advanced patient's diet to full liquids Serial abdominal examination. CORRY drain is in place. Insulin sliding scale for glucose management. Activity as tolerated. Monitor and correct electrolytes as needed.
[2022-09-18] MEDS: D5NS KCL 20MEQ 20 MEQ/1,000 ML BAG IV SCH ×3 (02:36→23:00)
[2022-09-18] MEDS: Meropenem 1,000 MG in NA CHLORIDE 0.9% 100 ML IV SCH ×3 (02:39→19:29)
[2022-09-18] MEDS: HYDROCODONE/APAP 5/325 MG TAB PO PRN ×3 (04:20→20:37)
[2022-09-18 05:51] LABS: Phosphorus 1.8 mg/dL (2.5-4.9); Potassium 3.6 mEq/L (3.5-5.1)
[2022-09-18] MEDS ORDERED: POTASSIUM PHOS IN 0.9 % NACL 15 MMOL/250 ML BAG IV ONE (07:00)
[2022-09-18] MEDS: INSULIN -REGULAR HUMAN 50 UNIT/0.5 ML ML SQ SCH ×4 (07:30→20:37)
[2022-09-18] MEDS: ENOXAPARIN 40 MG/0.4 ML SQ SCH (08:57)
--- NOTE | 2022-09-18 12:59 | PN ---
Date of Progress Note: 09/18/2022 Diagnoses: Perforated appendicitis, peritonitis. Subjective: The patient is doing better. No abdominal pain. No nausea, no vomiting. Tolerating di et, passing flatus, and having bowel movement this morning. The patient is afebrile. No shortness o f breath. No chest pain. Physical Examination: Chest: Clear. Abdomen: Soft and depressible. Intact surgical site. Bowel sounds positive and CORRY drain draining s erosanguineous. Extremity: No calf tenderness. Plan: Once he completed the antibiotics today, we will have no objection since the patient wants to go home to continue the antibiotics at home. Once again, even medical doctor believe it is okay sinc e he also had diabetes and they to have that issue under control, but at least from my standpoint, if he do want to go home tonight or tomorrow morning, it is okay as long as he will come this Monday to my office and take his antibiotics and continue with the CORRY until he comes to my office. ESTRADA/YASIR Voice ID: [id number] Report ID: [id number]
--- NOTE | 2022-09-18 13:45 | P.PN ---
Subjective Date of Service: 09/18/22 Primary Care Provider: Sara Hall Chief Complaint: Appendicitis Status post lap appendectomy 09/15. Patient has no new complaint. He states his abdominal pain is under control. He states that he has been ambulatory. Leukocytosis resolved. Physical Examination - Vital Signs Temperature: 97.6 F Blood Pressure: 119/75 Pulse: 83 Respirations: 18 Pulse Ox (%): 96 Assessment And Plan - Current Problems (Diagnosis) (1) Acute appendicitis Current Visit: Yes Status: Acute Qualifiers: Acute appendicitis type: with localized peritonitis Appendicitis gangrene presence: without gangrene Appendicitis perforation presence: without perforation Appendicitis abscess presence: without abscess Qualified Code(s): K35.30 - Acute appendicitis with localized peritonitis, without perforation or gangrene (2) Hypertension Current Visit: Yes Status: Chronic Qualifiers: Hypertension type: primary hypertension Qualified Code(s): I10 - Essential (primary) hypertension (3) Type 2 diabetes mellitus Current Visit: Yes Status: Chronic Qualifiers: Diabetes mellitus retirement insulin 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 Normal bowel sounds. CORRY drain in place Musculoskeletal: No tenderness Integumentary: No rashes Neurological: No focal motor deficit. Plan: S/P lap appendectomy for perforated appendix Surgery Dr. Post is concerned about impending peritonitis and ileus. Blood culture: ESBL E. coli. Continue IV meropenem Repeat blood culture shows no growth today Infectious disease is following. Patient may need prolonged outpatient IV antibiotics. Patient may need PICC line for outpatient IV antibiotics. Infectious disease to follow Surgery Dr. Post is following. Diet advanced to solid. Serial abdominal examination. CORRY drain is in place. Insulin sliding scale for glucose management. Activity as tolerated. Monitor and correct electrolytes as needed.
[2022-09-19 03:14] VITALS: O2SAT 96
[2022-09-19] MEDS ORDERED: NA CHLORIDE 0.9% 100 ML ONE (03:28)
[2022-09-19] MEDS ORDERED: Meropenem 1000 MG/VIAL IV ONE (03:28)
[2022-09-19] MEDS: Meropenem 1,000 MG in NA CHLORIDE 0.9% 100 ML IV SCH ×2 (03:30→10:58)
[2022-09-19] MEDS: HYDROCODONE/APAP 5/325 MG TAB PO PRN (03:31)
[2022-09-19 04:15] LABS: Phosphorus 2.2 mg/dL (2.5-4.9)
[2022-09-19] MEDS: INSULIN -REGULAR HUMAN 50 UNIT/0.5 ML ML SQ SCH ×4 (07:30→16:29)
[2022-09-19] MEDS: ENOXAPARIN 40 MG/0.4 ML SQ SCH (09:00)
[2022-09-19] MEDS: POTASS/SODIUM PHOSPHATE 1 PKT POWD.PACK PO SCH ×3 (09:41→09:45)
--- NOTE | 2022-09-19 09:46 | P.PN ---
Date of Service: 09/19/22 Chief Complaint: Appendicitis Subjective: Patient seen and examined at bedside. Overall improving. Denies any new or worsening complaints. A&Ox4. Breathing comfortably on room air. Physical Examination Temp Pulse Resp BP Pulse Ox 97.6 F 70 18 144/87 H 98 09/19/22 08:00 09/19/22 08:00 09/19/22 08:00 09/19/22 08:00 09/19/22 08:00 General: Alert, In no apparent distress, Oriented x3 HEENT: Atraumatic, Normocephalic Neck: Supple, JVD not distended Respiratory: Clear to auscultation bilaterally, Normal air movement Cardiovascular: No edema, Normal pulses Gastrointestinal: Normal bowel sounds, Tenderness Musculoskeletal: No clubbing, No swelling Integumentary: No rashes, No breakdown, Surgical incision sites dressing clean dry and intact. CORRY drain noted. Neurological: Normal speech, Normal tone, Normal affect Laboratory Data - Reviewed Microbiology Data - Reviewed Imagings Data: - Reviewed Medication List: Reviewed Assessment and Plan Problem List Acute appendicitis s/p laparascopic appendectomy Diabetes Mellitus type II Hypertension Hyperlipidemia Bacteremia Bacteremia - Blood cultures 09/14: E.coli ESBL - Repeat blood cultures 09/16: No growth to date - Zosyn (09/15) switched to Merrem on 09/17. - Leukocytosis, improving (WBC 8.6) - Afebrile Recommendations - Bacteremia: Continue Merrem/Invanz x 14 days (started 09/17) - Patient to follow up with surgery team as outpatient for drain removal - Strict blood glucose control Case discussed with Jenny Tee
[2022-09-19] MEDS: D5NS KCL 20MEQ 20 MEQ/1,000 ML BAG IV SCH (10:57)
--- NOTE | 2022-09-19 13:54 | P.DS ---
Admission Date: 09/14/22 Discharge Date: 09/19/22 Primary Care Provider: Sara Hall Disposition: ROUTINE DISCHARGE Discharge Condition: FAIR Reason for Admission: Appendicitis - Problems (1) Acute appendicitis Current Visit: Yes Status: Acute Qualifiers: Acute appendicitis type: with localized peritonitis Appendicitis gangrene presence: without gangrene Appendicitis perforation presence: without perforation Appendicitis abscess presence: without abscess Qualified Code(s): K35.30 - Acute appendicitis with localized peritonitis, without perforation or gangrene (2) Hypertension Current Visit: Yes Status: Chronic Qualifiers: Hypertension type: primary hypertension Qualified Code(s): I10 - Essential (primary) hypertension (3) Type 2 diabetes mellitus Current Visit: Yes Status: Chronic Qualifiers: Diabetes mellitus meeting facilitator insulin use: without meeting facilitator use Diabetes mellitus complication status: with hyperglycemia Qualified Code(s): E11.65 - Type 2 diabetes mellitus with hyperglycemia (4) Gram-negative bacteremia Current Visit: Yes Status: Acute Brief History of Present Illness: Mr. Post is a 41 year old male with past medical history of hypertension, hyperlipidemia, and non-insulin dependent type 2 diabetes who presented to the emergency department with complaints of right lower quadrant abdominal pain and left sided chest pain that began this morning. His EKG was unremarkable, troponin negative. Labs are significant for leukocytosis. Lactate pending. He did meet sepsis criteria as he was tachycardic and febrile. CT abdomen pelvis showed Appendix dilated to 15 mm with moderate surrounding fluid compatible with acute appendicitis. Dr Post was contacted who recommended laproscopic appendectomy. He was started on zosyn in the emergency department and admitted for further management. Hospital Course: S/P lap appendectomy for perforated appendix Surgery Dr. Post was concerned about impending peritonitis and ileus. Patient had leukocytosis. Blood culture: ESBL E. coli. Antibiotics changed to IV Merrem. Repeat blood culture showed no growth today Seen by infectious disease. Midline placed for outpatient IV antibiotics. 11 more days of IV Invanz recommended. Patient tolerated diet advancement to solid diet. CORRY drain is in place. Blood sugar was managed insulin sliding scale for glucose management. Patient has been ambulatory and tolerating diet. He is deemed stable for discharge per surgery. Vital Signs/Physical Exam: Temp Pulse Resp BP Pulse Ox 97.6 F 70 18 144/87 H 98 09/19/22 08:00 09/19/22 08:00 09/19/22 08:00 09/19/22 08:00 09/19/22 08:00 General: Alert, In no apparent distress HEENT: Mucous membr. moist/pink Neck: JVD not distended Respiratory: Clear to auscultation bilaterally, Normal air movement Cardiovascular: No edema, Regular rate/rhythm, Normal S1 S2 Gastrointestinal: Soft and benign, Non-distended, No tenderness Musculoskeletal: No swelling Integumentary: No rashes, No cyanosis Neurological: Normal strength at 5/5 x4 extr Laboratory Data at Discharge: WBC 8.60 thou/uL (4.3-10.9) 09/17/22 02:54 Hgb 13.3 g/dL (13.6-17.9) L 09/17/22 02:54 Hct 39.5 % (39.6-49.0) L 09/17/22 02:54 Plt Count 150 thou/uL (152-406) L 09/17/22 02:54 Sodium 137 mEq/L (136-145) 09/19/22 03:13 Potassium 4.0 mEq/L (3.5-5.1) 09/19/22 03:13 BUN 9 mg/dL (7-18) 09/19/22 03:13 Creatinine 0.69 mg/dL (0.70-1.30) L 09/19/22 03:13 Glucose 191 mg/dL (74-106) H 09/19/22 03:13 Phosphorus 2.2 mg/dL (2.5-4.9) L 09/19/22 03:13 Magnesium 1.9 mg/dL (1.6-2.4) 09/15/22 02:31 Total Bilirubin 1.1 mg/dL (0.2-1.0) H 09/14/22 17:38 AST 16 U/L (15-37) 09/14/22 17:38 ALT 36 U/L (16-61) 09/14/22 17:38 Alkaline Phosphatase 83 U/L (45-117) 09/14/22 17:38 Triglycerides 74 mg/dL (<150) 09/15/22 02:13 Cholesterol 149 mg/dL (<200) 09/15/22 02:13 HDL Cholesterol 52 mg/dL (40-60) 09/15/22 02:13 Cholesterol/HDL Ratio 2.87 09/15/22 02:13 Lipase 22 U/L (13-75) 09/14/22 17:38 Home Medications: Empagliflozin [Jardiance] 10 mg PO DAILY 09/14/22 Glimepiride [Amaryl*] 2 mg PO DAILY 09/14/22 Losartan Potassium [Cozaar] 100 mg PO DAILY 09/14/22 Lovastatin 20 mg PO DAILY 09/14/22 Hydrocodone 5/APAP 325 [[place] 5/325*] 1 tab PO Q4H PRN #15 tab 09/19/22 Mupirocin Calcium [Bactroban Nasal*] 1 appl CRISTINA BID #1 tube 09/19/22 New Medications: Mupirocin Calcium [Bactroban Nasal*] 1 appl CRISTINA BID #1 tube Hydrocodone 5/APAP 325 [[place] 5/325*] 1 tab PO Q4H PRN #15 tab PRN Reason: Pain Scale 5-7 (Moderate) Followup: Sara Leon NP [Primary Care Provider] - 1-2 Weeks Ralph Post MD [ACTIVE - CAN ADMIT] - 1 Week Time spent managing pt's care (in minutes): 33
[2022-09-19] MEDS ORDERED: ERTAPENEM NA 1 GM in NA CHLORIDE 0.9% 100 ML IVPB ONE (16:00)
[2022-09-19 16:48] VITALS: BP 146/85; TEMP 97.5
[2022-09-19] MEDS ORDERED: Mupirocin NASAL 2 APPL/1 GM TUBE NAS SCH (21:00)
== END 2022-09-19 18:11 | disposition home or self-care (01) | DRG 853 ==
LOC: ER 17:24 → ERHOLD 20:10 → 2ND 21:14
PROVIDERS: ADMIT Internal Medicine; ATTEND Internal Medicine
PROC: 0DTJ4ZZ Resection of Appendix, Percutaneous Endoscopic Approach (ICD-10-PCS; principal; 2022-09-14 21:00)
DX: A41.51 Sepsis due to Escherichia coli [E. coli] (principal); K35.32 Acute appendicitis with perforation, localized peritonitis, and gangrene, without abscess; K56.7 Ileus, unspecified; Z16.12 Extended spectrum beta lactamase (ESBL) resistance; I10 Essential (primary) hypertension; E78.2 Mixed hyperlipidemia; E11.65 Type 2 diabetes mellitus with hyperglycemia; Z79.84 Long term (current) use of oral hypoglycemic drugs; Z79.899 Other long term (current) drug therapy
CPT/HCPCS: 36415; 71045; 74177; 80048; 80053; 80061; 81001; 82947; 83036; 83605; 83690; 83735; 84100; 84443; 84484; 85025; 87040; 87077; 87186; 87205; 88304; 93005; 94010; 99285; J1100; J1335; J1650; J1815; J2001; J2185; J2250; J2270; J2405; J2543; J2704; J2710; J3010; J3480; J7030

== ENCOUNTER 2022-11-07 08:15 | Day surgery (SDC) | payer BC ==
[2022-11-07] MEDS ORDERED: NA CHLORIDE 0.9% 1,000 ML ONE (08:43)
[2022-11-07] MEDS ORDERED: LIDOCAINE 1% MPF 30 ML VIAL ONE (08:47)
[2022-11-07] MEDS ORDERED: GLYCOPYRROLATE 0.2 MG/ML SYR ONE (08:47)
[2022-11-07] MEDS ORDERED: propofoL 200 MG/20 ML VIAL IV ONE (08:47)
[2022-11-07 12:33] VITALS: BP 103/60; TEMP 97.7; O2SAT 98
== END 2022-11-07 10:37 | disposition home or self-care (01) ==
LOC: OR 08:15
PROVIDERS: ATTEND Surgery
PROC: 0DBL8ZX Excision of Transverse Colon, Via Natural or Artificial Opening Endoscopic, Diagnostic (ICD-10-PCS; principal; 2022-11-07 09:45)
DX: Z12.11 Encounter for screening for malignant neoplasm of colon (principal); K64.4 Residual hemorrhoidal skin tags; K64.8 Other hemorrhoids; K57.30 Diverticulosis of large intestine without perforation or abscess without bleeding; K63.5 Polyp of colon; E11.9 Type 2 diabetes mellitus without complications; I10 Essential (primary) hypertension; E78.00 Pure hypercholesterolemia, unspecified
CPT/HCPCS: 82947; 88305; 45384; J2704; J2001; J7030

== ENCOUNTER 2023-02-20 16:44 | Emergency (ER) | payer BC ==
--- OUTSIDE RECORDS SUMMARY | 2023-02-20 16:48 | XMS REPORT | Continuity of Care Document ---
:1980 Author Organization [facility] t Address [address] [facility] [address] [place] [address] Care Team Providers Name Role Phone EppingSara Attending Clinician Unavailable Payers Payer Name Policy Type Policy Number Effective Date Expiration Date S vania [employer] 6 [id number] 2020 Common Spiri t Blue Shield of 00:00:00 - [facility] AETNA C1 [id number] [facility] Problems Condition Condition Condition Status Onset Resolution Last Treating Co mments Source Name Details Category Date Date Treatment Clinician Date [id number] Encounter Problem Com mon for Spirit general - [facility] adult [facility] examinatio Medica l n without Center abnormal findings [id number] Other male Problem Co mmon erectile Spirit dysfunctio - [facility] n [facility] [id number] Status Problem Common post Spirit appendecto - [facility] my [facility] [id number] Type 2 Problem Common diabetes Spirit mellitus - [facility] with [facility] long-term current use of insulin Hypertensi Hypertensi Problem C ommon on on Spirit - [facility] [id number] Obesity Problem Commo n (BMI Spirit 30-39.9) [facility] [id number] Obstructiv Problem Com mon e sleep Spirit apnea - [facility] (adult) ([facility] ) [facility] Allergies, Adverse Reactions, Alerts This patient has no known allergies or adverse reactions. Social History Social Habit Start Date Stop Date Quantity Comments Source History of Tobacco Use Co mmon [facility] Sex Assigned At Com mon [facility] Smoking Status Start Date Stop Date Source Never Smoker Common [facility] Medications Ordered Filled Start Stop Current Ordering Indication Dosage Frequency Signature Comments Components Source Medication Medication Date Date Medication? Clinician (SIG) Name Name Viagra 100 Viagra 100 2020- No 1{table QD Viagra 100 MG MG 08-18 t_as_ne MG 00:00: 00:00 eded} 00 :00 Sildenafil Sildenafil 2019-03- No 1{table QD Sildenafil Citrate 100 Citrate 100 04-23 t_as_ne Citrate MG MG 00:00: 00:00 eded} 100 MG 00 :00 Jardiance Jardiance No Jardiance 10 MG 10 MG 10 MG Multi Multi No 1{table QD Multi Vitamin Vitamin t} Vitamin Daily - Daily - Daily - Glimepiride Glimepiride No Glimepirid 2 MG 2 MG e 2 MG Lovastatin Lovastatin No Lovastatin 20 MG 20 MG 20 MG Jardiance Jardiance No Jardiance 10 MG 10 MG 10 MG Airborne Airborne No Airborne Losartan Losartan No 1{table QD Losartan Potassium Potassium t} Potassium 50 MG 50 MG 50 MG Multi Multi No 1{table QD Multi Vitamin Vitamin t} Vitamin Daily - Daily - Daily - Glimepiride Glimepiride No Glimepirid 2 MG 2 MG e 2 MG Lovastatin Lovastatin No Lovastatin 20 MG 20 MG 20 MG Jardiance Jardiance No Jardiance 10 MG 10 MG 10 MG Airborne Airborne No Airborne Losartan Losartan No 1{table QD Losartan Potassium Potassium t} Potassium 50 MG 50 MG 50 MG Multi Multi No 1{table QD Multi Vitamin Vitamin t} Vitamin Daily - Daily - Daily - Losartan Losartan No Losartan Potassium Potassium Potassium 50 MG 50 MG 50 MG Glimepiride Glimepiride No QD Glimepirid 2 MG 2 MG e 2 MG Jardiance Jardiance No Jardiance 10 MG 10 MG 10 MG Lovastatin Lovastatin No Lovastatin 20 MG 20 MG 20 MG Lovastatin Lovastatin No Lovastatin 20 MG 20 MG 20 MG Losartan Losartan No Losartan Potassium Potassium Potassium 50 MG 50 MG 50 MG Multi Multi No 1{table QD Multi Vitamin Vitamin t} Vitamin Daily - Daily - Daily - Jardiance Jardiance No Jardiance 10 MG 10 MG 10 MG Glimepiride Glimepiride No QD Glimepirid 2 MG 2 MG e 2 MG Jardiance Jardiance No Jardiance 10 MG 10 MG 10 MG Multi Multi No 1{table QD Multi Vitamin Vitamin t} Vitamin Daily - Daily - Daily - Lovastatin Lovastatin No Lovastatin 20 MG 20 MG 20 MG Glimepiride Glimepiride No Glimepirid 2 MG 2 MG e 2 MG Losartan Losartan No Losartan Potassium Potassium Potassium 50 MG 50 MG 50 MG Lovastatin Lovastatin No Lovastatin 20 MG 20 MG 20 MG Losartan Losartan No Losartan Potassium Potassium Potassium 50 MG 50 MG 50 MG Jardiance Jardiance No Jardiance 10 MG 10 MG 10 MG Glimepiride Glimepiride No Glimepirid 2 MG 2 MG e 2 MG Multi Multi No 1{table QD Multi Vitamin Vitamin t} Vitamin Daily - Daily - Daily - Jardiance Jardiance Yes Sara TAKE 1 Co mmon Epping TABLET BY Spirit MOUTH ONCE - CHI DAILY [facility] Lovastatin Lovastatin Yes Sara TAKE 1 Common Epping TABLET BY Spirit MOUTH ONCE - CHI DAILY [facility] Glimepiride Glimepiride Yes Sara take 1 Common Epping tablet by Spirit mouth once - CHI daily [facility] Losartan Losartan Yes Sara TAKE 1 Comm on Potassium Potassium Epping TABLET BY Spirit MOUTH ONCE - [facility]I DAILY [facility] Multi Multi Yes Sara 1 tablet Common Vitamin Vitamin Epping Spirit Daily Daily - [facility] Lovastatin Lovastatin No Lovastatin 20 MG 20 MG 20 MG Multi Multi No 1{table QD Multi Vitamin Vitamin t} Vitamin Daily - Daily - Daily - Glimepiride Glimepiride No Glimepirid 2 MG 2 MG e 2 MG Jardiance Jardiance No Jardiance 10 MG 10 MG 10 MG Losartan Losartan No Losartan Potassium Potassium Potassium 50 MG 50 MG 50 MG Multi Multi No 1{table QD Multi Vitamin Vitamin t} Vitamin Daily - Daily - Daily - Lovastatin Lovastatin No Lovastatin 20 MG 20 MG 20 MG Losartan Losartan No 1{table QD Losartan Potassium Potassium t} Potassium 50 MG 50 MG 50 MG Glimepiride Glimepiride No Glimepirid 2 MG 2 MG e 2 MG Airborne Airborne No Airborne Jardiance Jardiance No Jardiance 10 MG 10 MG 10 MG Multi Multi No 1{table QD Multi Vitamin Vitamin t} Vitamin Daily - Daily - Daily - Lovastatin Lovastatin No Lovastatin 20 MG 20 MG 20 MG Losartan Losartan No 1{table QD Losartan Potassium Potassium t} Potassium 50 MG 50 MG 50 MG Glimepiride Glimepiride No Glimepirid 2 MG 2 MG e 2 MG Airborne Airborne No Airborne Immunizations Ordered Filled Immunization Date Status Comments Sour e Immunization Name Name Flucelvax - Flucelvax - 2018-02-15 Completed [facility] t multidose vial multidose vial 16:50:00 - [facility] Flucelvax - Flucelvax - 2018-02-15 Completed [facility] Spiri t multidose vial multidose vial 16:50:00 - [facility] Flucelvax - Flucelvax - 2018-02-15 Completed Common Spiri t multidose vial multidose vial 16:50:00 - [facility] Flucelvax - Flucelvax - 2018-02-15 Completed Common Spiri t multidose vial multidose vial 16:50:00 - [facility] Flucelvax - Flucelvax - 2018-02-15 Completed Common Spiri t multidose vial multidose vial 16:50:00 - [facility] Flucelvax - Flucelvax - Unknown Completed [facility] Sp[facility] t multidose vial multidose vial - [facility] Flucelvax - Flucelvax - Unknown Completed [facility] multidose vial multidose vial - [facility] Flucelvax - Flucelvax - Unknown Completed [facility] t multidose vial multidose vial - [facility] Flucelvax - Flucelvax - Unknown Completed [facility] Spiri t multidose vial multidose vial - [facility] Vital Signs Vital Name Observation Time Observation Value Comments Source height 2022-08-18 14:40:00 66 [in_i] Common S pirit [facility] weight 2022-08-18 14:40:00 210.8 [lb_av] Common Spirit [facility] temperature 2022-08-18 14:40:00 97.7 [degF] Common S pirit - [facility] bmi 2022-08-18 14:40:00 34.02 kg/m2 Common [facility] oximetry 2022-08-18 14:40:00 96 % [facility] respiratory rate 2022-08-18 14:40:00 15 /min Comm on [facility] blood pressure 2022-08-18 14:40:00 123 mm[Hg] Common [facility] - systolic [facility] blood pressure 2022-08-18 14:40:00 72 mm[Hg] Common [facility] - diastolic [facility] height 2022-05-23 08:00:00 66 [in_i] Common [facility] weight 2022-05-23 08:00:00 212.8 [lb_av] [facility] temperature 2022-05-23 08:00:00 97.7 [degF] Common [facility] bmi 2022-05-23 08:00:00 34.34 kg/m2 [facility] oximetry 2022-05-23 08:00:00 96 % [facility] respiratory rate 2022-05-23 08:00:00 15 /min Comm on [facility] blood pressure 2022-05-23 08:00:00 127 mm[Hg] Common [facility] - systolic [facility] blood pressure 2022-05-23 08:00:00 70 mm[Hg] Common [facility] - diastolic [facility] height 2022-02-21 09:00:00 66 [in_i] Common [facility] weight 2022-02-21 09:00:00 211 [lb_av] Common [facility] temperature 2022-02-21 09:00:00 97.6 [degF] [facility] bmi 2022-02-21 09:00:00 34.05 kg/m2 [facility] oximetry 2022-02-21 09:00:00 98 % Common [facility] respiratory rate 2022-02-21 09:00:00 17 /min Comm on [facility] blood pressure 2022-02-21 09:00:00 132 mm[Hg] Common [facility] - systolic [facility] blood pressure 2022-02-21 09:00:00 82 mm[Hg] Common [facility] - diastolic [facility] height 2021-08-18 08:00:00 66 [in_i] Common [facility] weight 2021-08-18 08:00:00 215 [lb_av] [facility] temperature 2021-08-18 08:00:00 98.2 [degF] [facility] bmi 2021-08-18 08:00:00 34.7 kg/m2 [facility] oximetry 2021-08-18 08:00:00 98 % [facility] respiratory rate 2021-08-18 08:00:00 16 /min Comm on [facility] blood pressure 2021-08-18 08:00:00 127 mm[Hg] Common [facility] - systolic [facility] blood pressure 2021-08-18 08:00:00 76 mm[Hg] Common [facility] diastolic [facility] height 2021-02-19 09:40:00 66 [in_i] Common [facility] weight 2021-02-19 09:40:00 220.8 [lb_av] Common [facility] temperature 2021-02-19 09:40:00 98.1 [degF] Common [facility] bmi 2021-02-19 09:40:00 35.63 kg/m2 [facility] oximetry 2021-02-19 09:40:00 98 % [facility] respiratory rate 2021-02-19 09:40:00 16 /min Comm on [facility] blood pressure 2021-02-19 09:40:00 128 mm[Hg] Common [facility] - systolic [facility] blood pressure 2021-02-19 09:40:00 70 mm[Hg] Common [facility] - diastolic [facility] height 2020-08-18 09:40:00 66 [in_i] Common [facility] weight 2020-08-18 09:40:00 208 [lb_av] Common [facility] temperature 2020-08-18 09:40:00 97.6 [degF] Common [facility] bmi 2020-08-18 09:40:00 33.57 kg/m2 [facility] oximetry 2020-08-18 09:40:00 99 % [facility] respiratory rate 2020-08-18 09:40:00 18 /min Comm on [facility] blood pressure 2020-08-18 09:40:00 119 mm[Hg] Common [facility] - systolic [facility] blood pressure 2020-08-18 09:40:00 82 mm[Hg] Common [facility] - diastolic [facility] height 2020-02-21 08:40:00 66 [in_i] Common [facility] weight 2020-02-21 08:40:00 215.2 [lb_av] [facility] temperature 2020-02-21 08:40:00 97.2 [degF] Common [facility] bmi 2020-02-21 08:40:00 34.73 kg/m2 Common [facility] oximetry 2020-02-21 08:40:00 96 % Common [facility] respiratory rate 2020-02-21 08:40:00 16 /min Comm on [facility] blood pressure 2020-02-21 08:40:00 124 mm[Hg] Common [facility] - systolic [facility] blood pressure 2020-02-21 08:40:00 77 mm[Hg] Common [facility] diastolic [facility] Procedures This patient has no known procedures. Encounters Start End Encounter Admission Attending Care Care Encounter Source Date/Time Date/Time Type Type Clinicians Facility Department ID 2023-02-16 Outpatient Carolyn, STLMLC STLMLC [id number] Common 14:49:00 Sara [id number] [facility] 2022-02-17 Outpatient Carolyn, STLMLC STLMLC [id number] Common 16:30:01 Sara [id number] [facility] 2021-04-14 Outpatient Carolyn, STLMLC STLMLC [id number] Common 14:19:22 Sara [id number] [facility] 2021-04-14 Outpatient Carolyn, STLMLC STLMLC [id number] Common 12:09:47 Sara [id number] [facility] 2022-08-18 2022-08-18 OFFICE STLMLC STLMLC [id number] Co mmon 00:00:00 00:00:00 VISIT [facility] ESTAB PT - CHI LEVEL 3 [facility] 2022-08-09 2022-08-09 (TEL) STLMLC STLMLC [id number] Co mmon 00:00:00 00:00:00 [facility] 2022-06-27 2022-06-27 (TEL) STLMLC STLMLC [id number] Co mmon 00:00:00 00:00:00 [facility] 2022-05-23 2022-05-23 OFFICE STLMLC STLMLC [id number] Co mmon 00:00:00 00:00:00 VISIT Spirit ESTAB PT - CHI LEVEL 4 [facility] 2022-02-21 2022-02-21 PREV VISIT STLMLC STLMLC [id number] Common 00:00:00 00:00:00 EST AGE [facility] 40-64 - CHI [facility] 2021-08-18 2021-08-18 OFFICE STLMLC STLMLC [id number] Co mmon 00:00:00 00:00:00 VISIT Spirit ESTAB PT - CHI LEVEL 4 [facility] 2021-02-19 2021-02-19 OFFICE STLMLC STLMLC [id number] Co mmon 00:00:00 00:00:00 VISIT Spirit ESTAB PT - CHI LEVEL 4 [facility] 2020-08-18 2020-08-18 OFFICE STLMLC STLMLC [id number] Co mmon 00:00:00 00:00:00 VISIT Spirit ESTAB PT - CHI LEVEL 4 [facility] 2020-02-21 2020-02-21 OFFICE STLMLC STLMLC [id number] Co mmon 00:00:00 00:00:00 VISIT Spirit ESTAB PT - CHI LEVEL 4 [facility] 2019-09-23 2019-09-23 [id number] Common 13:00:00 13:00:[address] [facility] 2019-09-19 2019-09-19 [facility] [id number] Common 13:10:00 13:10:[address] [facility] 2019-08-19 2019-08-19 [facility] [id number] Common 10:20:00 10:20:[address] [facility] 2019-02-20 2019-02-20 [facility] [id number] Common 11:40:00 11:40:[address] [facility] 2019-01-24 2019-01-24 [facility] [id number] Common 14:00:00 14:00:[address] [facility] 2018-09-04 2018-09-04 [facility] [id number] Common 13:00:00 13:00:[address] [facility] 2018-03-14 2018-03-14 [facility] [id number] Common 15:55:00 15:55:[address] [facility] 2017-10-30 2017-10-30 [facility] [id number] Common 18:21:00 18:21:[address] [facility] 2017-08-15 2017-08-15 [facility] [id number] Common 15:00:00 15:00:00 t [facility] [address] [facility] Results Test Description Test Time Test Comments Results Result Comments Source HEMOGLOBIN A1c 2022-08-12 00:00:00 Test Item Value Reference Range Interpretation Comme nts HEMOGLOBIN A1c (test code = 7.7 % See_Comment H [Automated message] The system 4548-4) which generated this result transmitted ref erence range: 4.2-5.6 %. The reference range was not used to int erpret this result as normal/abnor mal. ALBUMIN/CREATININE RATIO, RANDOM [id number] 00:00:00 Test Item Value Reference Range Interpretation Comments ALBUMIN, URINE, 0.2 MG/DL NOT ESTAB MG/DL RANDOM (test code = 37684-8) CALC ALBUMIN/CREAT, 2 MG/G See_Comment [Automa annie message] The RND (test code = system [employer] generated 23661-9) this result tra nsmitted reference range : <30 MG/G. The refer ence range was not u sed to interpret this result as normal/abnormal . CREATININE, URINE, 82.4 MG/DL NOT ESTAB MG/DL CONC. (test code = 2161-8) COMPREHENSIVE METABOLIC [id number] 00:00:00 Test Item Value Reference Range Interpretation Comments ALBUMIN (test code = 4.6 G/DL See_Comment [Autom ated message] 1751-7) The system [employer] generated this result transmit annie reference range : 3.5-5.2 G/DL. T he reference range was not used to interpret this result as normal/abnormal . ALKALINE PHOSPHATASE 90 U/L See_Comment [Autom ated message] (test code = 6768-6) The sys tem which generated this result transmit annie reference range : 40-119 U/L. The reference range was not used to interpret this result as normal/abnormal . BILIRUBIN, TOTAL 0.6 MG/DL See_Comment [Automated message] (test code = 1975-2) The sys tem which generated this result transmit annie reference range : <=1.2 MG/DL. Th e reference range was not used to interpret this result as normal/abnormal . BUN (test code = 22 MG/DL See_Comment H [Automated message] 3094-0) The system [employer] generated this result transmit annie reference range : 6-20 MG/DL. The reference range was not used to interpret this result as normal/abnormal . CALCIUM (test code = 9.6 MG/DL See_Comment [Autom ated message] 94801-0) The system [facility] generated this result transmit annie reference range : 8.5-10.5 MG/DL. The reference range was not used to interpret this result as normal/abnormal . CALC A/G RATIO (test 2.1 RATIO See_Comment [Autom ated message] code = 1759-0) The system [facility] generated this result transmit annie reference range : 1.0-2.6 RATIO. The reference range was not used to interpret this result as normal/abnormal . CALC BUN/CREAT (test 29 RATIO See_Comment H [Autom ated message] code = 3097-3) The system [facility] generated this result transmit annie reference range : 6-28 RATIO. The reference range was not used to interpret this result as normal/abnormal . CALC GLOBULIN (test 2.2 G/DL See_Comment [Automa annie message] code = 15330-5) The system [facility] generated this result transmit annie reference range : 1.9-3.7 G/DL. T he reference range was not used to interpret this result as normal/abnormal . CARBON DIOXIDE (test 24 MEQ/L See_Comment [Autom ated message] code = 1963-8) The system [facility] generated this result transmit annie reference range : 19-31 MEQ/L. Th e reference range was not used to interpret this result as normal/abnormal . CHLORIDE (test code 108 MEQ/L See_Comment H [Automa annie message] = 5-0) The system [facility] generated this result transmit annie reference range : 95-107 MEQ/L. T he reference range was not used to interpret this result as normal/abnormal . CREATININE (test 0.77 MG/DL See_Comment L [Automated message] code = 2160-0) The system [facility] generated this result transmit annie reference range : 0.80-1.40 MG/DL . The reference range was not used to interpret this result as normal/abnormal . eGFR (2020 CKD-EPI) 115 See_Comment [Automa annie message] (test code = ML/MIN/1.[address] [facility] 00830-0) generated this result transmit annie reference range : >60 ML/MIN/1.73. Th e reference range was not used to interpret this result as normal/abnormal . GLUCOSE (test code = 119 MG/DL See_Comment H [Autom ated message] 1558-6) The system [email or web address] generated this result transmit annie reference range : 70-99 MG/DL. Th e reference range was not used to interpret this result as normal/abnormal . POTASSIUM (test code 4.4 MEQ/L See_Comment [Autom ated message] = 2823-3) The system [email or web address] generated this result transmit annie reference range : 3.5-5.4 MEQ/L. The reference range was not used to interpret this result as normal/abnormal . PROTEIN, TOTAL (test 6.8 G/DL See_Comment [Autom ated message] code = 2885-2) The system [facility] generated this result transmit annie reference range : 6.1-8.3 G/DL. T he reference range was not used to interpret this result as normal/abnormal . AST (test code = 20 U/L See_Comment [Automated message] 1920-8) The system [email or web address] generated this result transmit annie reference range : 9-50 U/L. The reference range was not used to interpret this result as normal/abnormal . ALT (test code = 31 U/L See_Comment [Automated message] 8672-6) The system [email or web address] generated this result transmit annie reference range : 5-50 U/L. The reference range was not used to interpret this result as normal/abnormal . SODIUM (test code = 145 MEQ/L See_Comment [Automa annie message] 5081-2) The system [email or web address] generated this result transmit annie reference range : 133-146 MEQ/L. The reference range was not used to interpret this result as normal/abnormal . HEMOGLOBIN [id number] 00:00:00 Test Item Value Reference Range Interpretation Comments HEMOGLOBIN A1c (test 7.7 % See_Comment H [Autom ated message] The code = 4548-4) system which generated this result tra nsmitted reference range : 4.2-5.6 %. The referenc e range was not used to interpret this result as normal/abnormal . LIPID [id number] 00:00:00 Test Item Value Reference Range Interpretation Comments CHOLESTEROL (test code 190 MG/DL See_Comment [Aut omated message] = 2093-3) The system [facility] generated this result transmit annie reference range : <200 MG/DL. The reference range was not used to interpret this result as normal/abnormal . TRIGLYCERIDES (test 80 MG/DL See_Comment [Automa annie message] code = 2571-8) The system [employer] generated this result transmit annie reference range : <150 MG/DL. The reference range was not used to interpret this result as normal/abnormal . HDL CHOLESTEROL (test 51 MG/DL See_Comment [Auto mated message] code = 2085-9) The system [facility] generated this result transmit annie reference range : >39 MG/DL. The refe rence range was not u sed to interpret th is result as normal/abnormal . CALC LDL CHOL (test 122 MG/DL See_Comment H [Automa annie message] code = 49608-9) The system [employer] [facility] generated this result transmit annie reference range : <100 MG/DL. The reference range was not used to interpret this result as normal/abnormal . RISK RATIO LDL/HDL 2.39 RATIO See_Comment [Automat ed message] (test code = 84486-1) The sy stem which generated this result transmit annie reference range : <3.55 RATIO. Th e reference range was not used to interpret this result as normal/abnormal . ALBUMIN/CREATININE RATIO, RANDOM [id number] 00:00:00 Test Item Value Reference Range Interpretation Comments CREATININE, URINE, 76.3 MG/DL NOT ESTAB MG/DL CONC. (test code = 2161-8) ALBUMIN, URINE, 0.2 MG/DL NOT ESTAB MG/DL RANDOM (test code = 76282-5) CALC ALBUMIN/CREAT, 3 MG/G See_Comment [Automa annie message] The RND (test code = system [facility] generated 82288-5) this result tra nsmitted reference range : <30 MG/G. The refer ence range was not u sed to interpret this result as normal/abnormal . COMPREHENSIVE METABOLIC [id number] 00:00:00 Test Item Value Reference Range Interpretation Comments GLUCOSE (test code = 143 MG/DL See_Comment H [Autom ated message] 1558-6) The system [facility] generated this result transmit annie reference range : 70-99 MG/DL. Th e reference range was not used to interpret this result as normal/abnormal . BUN (test code = 19 MG/DL See_Comment [Automated message] 3094-0) The system [email or web address] generated this result transmit annie reference range : 6-20 MG/DL. The reference range was not used to interpret this result as normal/abnormal . CREATININE (test 0.85 MG/DL See_Comment [Automated message] code = 2160-0) The system [employer] generated this result transmit annie reference range : 0.80-1.40 MG/DL . The reference range was not used to interpret this result as normal/abnormal . eGFR (2020 CKD-EPI) 111 See_Comment [Automa annie message] (test code = ML/MIN/1.73 The system [facility] Rayn 86567-1) generated this result transmit annie reference range : >60 ML/MIN/1.73. Th e reference range was not used to interpret this result as normal/abnormal . CALC BUN/CREAT (test 22 RATIO See_Comment [Autom ated message] code = 3097-3) The system [employer] generated this result transmit annie reference range : 6-28 RATIO. The reference range was not used to interpret this result as normal/abnormal . SODIUM (test code = 140 MEQ/L See_Comment [Automa annie message] 2951-2) The system [employer] generated this result transmit annie reference range : 133-146 MEQ/L. The reference range was not used to interpret this result as normal/abnormal . POTASSIUM (test code 4.1 MEQ/L See_Comment [Autom ated message] = 8533-3) The system [facility] generated this result transmit annie reference range : 3.5-5.4 MEQ/L. The reference range was not used to interpret this result as normal/abnormal . CHLORIDE (test code 103 MEQ/L See_Comment [Automa annie message] = 6655-0) The system [facility] generated this result transmit annie reference range : 95-107 MEQ/L. T he reference range was not used to interpret this result as normal/abnormal . CARBON DIOXIDE (test 25 MEQ/L See_Comment [Autom ated message] code = 1963-8) The system [employer] generated this result transmit annie reference range : 19-31 MEQ/L. Th e reference range was not used to interpret this result as normal/abnormal . CALCIUM (test code = 9.4 MG/DL See_Comment [Autom ated message] 78573-5) The system [facility] generated this result transmit annie reference range : 8.5-10.5 MG/DL. The reference range was not used to interpret this result as normal/abnormal . PROTEIN, TOTAL (test 7.0 G/DL See_Comment [Autom ated message] code = 2885-2) The system [facility] generated this result transmit annie reference range : 6.1-8.3 G/DL. T he reference range was not used to interpret this result as normal/abnormal . ALBUMIN (test code = 4.6 G/DL See_Comment [Autom ated message] 1751-7) The system [facility] generated this result transmit annie reference range : 3.5-5.2 G/DL. T he reference range was not used to interpret this result as normal/abnormal . CALC GLOBULIN (test 2.4 G/DL See_Comment [Automa annie message] code = 14058-7) The system [facility] generated this result transmit annie reference range : 1.9-3.7 G/DL. T he reference range was not used to interpret this result as normal/abnormal . CALC A/G RATIO (test 1.9 RATIO See_Comment [Autom ated message] code = 1759-0) The system [facility] generated this result transmit annie reference range : 1.0-2.6 RATIO. The reference range was not used to interpret this result as normal/abnormal . BILIRUBIN, TOTAL 0.8 MG/DL See_Comment [Automated message] (test code = 1975-2) The sys tem which generated this result transmit annie reference range : <=1.2 MG/DL. Th e reference range was not used to interpret this result as normal/abnormal . ALKALINE PHOSPHATASE 98 U/L See_Comment [Autom ated message] (test code = 6768-6) The sys tem which generated this result transmit annie reference range : 40-119 U/L. The reference range was not used to interpret this result as normal/abnormal . AST (test code = 20 U/L See_Comment [Automated message] 1920-8) The system [facility] generated this result transmit annie reference range : 9-50 U/L. The reference range was not used to interpret this result as normal/abnormal . ALT (test code = 32 U/L See_Comment [Automated message] 2602-6) The system [employer] generated this result transmit annie reference range : 5-50 U/L. The reference range was not used to interpret this result as normal/abnormal . HEMOGLOBIN A1C Test Item Value Reference Range Interpretation Comments A1C (test code = 4548-4) 7.7
[2023-02-20] MEDS ORDERED: LIDOCAINE 1% MPF 5 ML VIAL ONE (17:53)
[2023-02-20] MEDS ORDERED: IBUPROFEN 400 MG TAB ONE (17:54)
[2023-02-20] MEDS ORDERED: HYDROCODONE/APAP 5/325 MG TAB ONE (17:54)
[2023-02-20] MEDS ORDERED: BUPIVACAINE 0.5% PF 10 ML VIAL ONE (17:54)
[2023-02-20] MEDS ORDERED: TDAP (DIPHTH,PERTUSS(ACELL),TET VAC) 0.5 ML VIAL IMVAC ONE (17:54)
--- NOTE | 2023-02-20 18:01 | RAD REPORT ---
EXAM DESCRIPTION: RAD - Finger-Thumb Right - 02/20/2023 5:52 pm CLINICAL HISTORY: SMASH INJURY COMPARISON: No comparisons FINDINGS: Comminuted tuft fracture with soft tissue defect noted involving the second finger. Mild r adiopaque debris is present in the region.
--- NOTE | 2023-02-20 19:52 | EDPHYS ---
Physician Documentation [facility] Name: Phillip Post Age: 42 yrs Sex: Male : 1980 Arrival Date: 02/20/2023 Time: 16:44 Bed DIS1 Private MD: ED Physician Karen Rangel HPI: 02/20 17:14 This 42 yrs old Male presents to ER via Ambulatory with complaints of Finger cp Injury - Lac,dropped a machine on it. 17:15 Patient is a 42-year-old male with past medical history significant for diabetes, cp hypertension and hyperlipidemia. Patient presents to the emergency department with a reported injury to his right index finger. Patient reports she was helping lift and move a welding machine and as he went to place it on its support, partially dropped and landed on the tip of his right index finger causing laceration. Historical: - Allergies: 17:08 No Known Allergies; iw - PMHx: 17:08 diabetes mellitus; Hypercholesterolemia; Hypertensive disorder; iw - PSHx: 17:08 Appendectomy; iw - Immunization history:: Last tetanus immunization: unknown. - Social history:: Smoking status: . ROS: 17:20 MS/extremity: Positive for injury or acute deformity, laceration, pain, of the distal cp phalanx of right index finger, 17:20 Constitutional: Negative for chills, fever, cp 17:20 ENT: Negative for drainage from ear(s), ear pain, sore throat, difficulty swallowing, difficulty handling secretions, 17:20 Respiratory: Negative for cough, shortness of breath, wheezing, 17:20 Abdomen/GI: Negative for abdominal pain, nausea, vomiting, and diarrhea, 17:20 Neuro: Negative for altered mental status, headache, 17:20 All other systems are negative, Exam: 17:25 Constitutional: The patient appears in no acute distress, alert, awake, cp non-diaphoretic, non-toxic, well developed, well nourished, uncomfortable, 17:25 Head/Face: Normocephalic, atraumatic. cp 17:25 Chest/axilla: Inspection: normal, 17:25 Cardiovascular: Rate: normal, Rhythm: regular, 17:25 Respiratory: the patient does not display signs of respiratory distress, Respirations: normal, no use of accessory muscles, no retractions, labored breathing, is not present, 17:25 Abdomen/GI: Inspection: abdomen appears normal, 17:25 Back: pain, is absent, 17:25 Musculoskeletal/extremity: Extremities: grossly normal except: noted in the right index finger: Laceration noted to palmar side of right index finger extending to both sides of nail, nail is intact but partially from the nailbed. There is mild bleeding. Right index finger is neurovascular intact, patient has full active range of motion of the finger, Vital Signs: 17:07 BP 132 / 86; Pulse 76; Resp 16; Temp 98.1; Pulse Ox 99% on R/A; Weight 95.25 kg; Height iw 5 ft. 6 in. ; Pain 7/10; 20:23 BP 128 / 82; Pulse 74; Resp 18; Pulse Ox 100% on R/A; mb9 17:07 Body Mass Index 33.89 (95.25 kg, 167.64 cm) iw 17:07 Pain Scale: Adult iw Laceration: 20:00 Wound Repair of 3cm ( 1.2in ) full thickness laceration to distal phalanx of right cp index finger. Skin/tissue flap noted.. Distal neuro/vascular/tendon intact. Anesthesia: Digital block administered with 8 mls of Lido/Marcaine. Wound prep: Extensive cleansing by me, Wound irrigation by me, Particulate matter removal of dirt of metal. Skin closed with 8 4-0 Prolene using interrupted sutures and sterile technique. Dressed with Bacitracin, bulky with finger splint. Patient tolerated well. MDM: 17:28 Patient medically screened. 19:51 Data reviewed: vital signs, nurses notes, radiologic studies, plain films. 19:51 Consideration of Admission/Observation Escalation of care including cp admission/observation considered. 02/20 17:13 Order name: XRAY Finger-Thumb RIGHT; Complete Time: 18:05 cp 02/20 18:05 Interpretation: Reviewed. 02/20 17:14 Order name: Wound Care: please clean and irrigate; Complete Time: 18:11 cp 02/20 19:36 Order name: Wound dressing; Complete Time: 20:12 cp 02/20 19:36 Order name: Splint - Finger; Complete Time: 20:12 cp Administered Medications: 17:45 Drug: Ibuprofen PO 800 mg PO once Route: PO; jl7 17:45 Drug: HYDROcodone-acetaminophen PO 5 mg-325 mg 1 tabs PO once Route: PO; jl7 18:00 Drug: Bupivacaine Infiltration (0.5 %) 10 ml 10 ml Infiltration once {Note: jl7 administered by ERP.} Volume: 10 ml; Route: Infiltration; 18:00 Drug: Lidocaine Infiltration (1 %) 10 ml 20 ml Infiltration once; to bedside {Note: jl7 administered by ERP.} Volume: 20 ml; Route: Infiltration; 18:01 CANCELLED (Duplicate Order): tetanus toxoid,adsorbed0.5 ml IM once; Provide Vaccine jl7 Information Statement (VIS). 18:01 Drug: Boostrix Tdap IM 0.5 ml IM once; as a single dose Route: IM; Site: left deltoid; jl7 20:12 Drug: Amoxicillin-Clavulanate PO 875 mg PO once Route: PO; mb9 Disposition Summary: 02/20/23 19:52 Discharge Ordered Notes: Location: Home cp Problem: new cp Symptoms: have improved cp Condition: Stable cp Diagnosis - Displaced fracture of distal phalanx of right index finger, initial encounter for cp open fracture Followup: cp - With: Private Physician - When: 2 - 3 days - Reason: Wound Recheck Discharge Instructions: - Discharge Summary Sheet cp - Finger Fracture, Adult cp Forms: - Medication Reconciliation Form cp - Thank You Letter cp - Antibiotic Education cp - Prescription Opioid Use cp - Patient Portal Instructions cp - Leadership Thank You Letter cp - Work release form hb Prescriptions: - acetaminophen-codeine 300-30 mg Oral tablet - take 2 tablet ORAL route 3 times per day As needed; 20 tablet; Refills: 0, cp Product Selection Permitted - Augmentin 875-125 mg Oral tablet - take 1 tablet ORAL route every 12 hours for 14 days; 28 tablet; Refills: 0, cp Product Selection Permitted - Ibuprofen 800 mg Oral Tablet - take 1 tablet ORAL route every 8 hours As needed take with food; 30 tablet; cp Refills: 0, Product Selection Permitted Signatures: Dispatcher [employer] Mariposa Tripp RN RN iw Page, Corey, PA PA cp Leal, Jahala, RN RN jl7 Alma Rice RN RN mb9 Corrections: (The following items were deleted from the chart) 17:09 17:08 Allergies: Aspirin; [facility] 18:01 17:13 Tetanus Toxoid,Adsorbed IM 0.5 ml IM once; Provide Vaccine Information Statement jl7 (VIS). ordered. cp 18:01 18:01 Tetanus Toxoid,Adsorbed IM 0.5 ml IM once; Provide Vaccine Information Statement jl7 (VIS). ordered. jl7 02/21 01:28 02/20 17:15 Patient is a 42-year-old male with past medical history significant for cp diabetes, hypertension and hyperlipidemia. Patient presents to the emergency department with a reported injury to his right index finger. cp 02/21 13:25 02/20 21:00 Wound Repair of 3cm ( 1.2in ) full thickness laceration to distal phalanx cp of right index finger. Skin/tissue flap noted.. Distal neuro/vascular/tendon intact. Anesthesia: Digital block administered with 8 mls of Lido/Marcaine. Wound prep: Extensive cleansing by me, Wound irrigation by me, Particulate matter removal of dirt of metal. Skin closed with 8 4-0 Prolene using interrupted sutures and sterile technique. Dressed with Bacitracin, bulky with finger splint. Patient tolerated well. cp
--- NOTE | 2023-02-20 19:52 | ER ---
Nurse's Notes [facility] Name: Phillip Post Age: 42 yrs Sex: Male : 1980 Arrival Date: 02/20/2023 Time: 16:44 Bed DIS1 Private MD: Diagnosis: Displaced fracture of distal phalanx of right index finger, initial encounter for open fracture Presentation: 02/20 17:07 Chief complaint: Patient states: welding machine fell on right index finger, it pinched iw the tip of his finger, created a flap. Coronavirus screen: At this time, the client does not indicate any symptoms associated with coronavirus-19. Ebola Screen: Patient negative for fever greater than or equal to 101.5 degrees Fahrenheit, and additional compatible Ebola Virus Disease symptoms Patient denies exposure to infectious person. Patient denies travel to an Ebola-affected area in the 21 days before illness onset. No symptoms or risks identified at this time. Initial Sepsis Screen: Does the patient meet any 2 criteria? No. Patient's initial sepsis screen is negative. Does the patient have a suspected source of infection? No. Patient's initial sepsis screen is negative. Risk Assessment: Do you want to hurt yourself or someone else? Patient reports no desire to harm self or others. Onset of symptoms was February 20, 2023. 17:07 Method Of Arrival: Ambulatory iw 17:07 Acuity: KADE 4 iw Historical: - Allergies: 17:08 No Known Allergies; iw - PMHx: 17:08 diabetes mellitus; Hypercholesterolemia; Hypertensive disorder; iw - PSHx: 17:08 Appendectomy; iw - Immunization history:: Last tetanus immunization: unknown. - Social history:: Smoking status: . Assessment: 20:22 General: Appears in no apparent distress. Behavior is calm, cooperative. Pain: mb9 Complains of pain in right hand. Neuro: Elliott Agitation-Sedation Scale (RASS): 0 - Alert and Calm Level of Consciousness is awake, alert, obeys commands, Oriented to person, place, time, situation, Appropriate for age. Cardiovascular: Patient's skin is warm and dry. Respiratory: Airway is patent Respiratory effort is even, unlabored, Respiratory pattern is regular, agonal. GI: No signs and/or symptoms were reported involving the gastrointestinal system. : No signs and/or symptoms were reported regarding the genitourinary system. EENT: No signs and/or symptoms were reported regarding the EENT system. Derm: Skin is pink, warm \T\ dry. Musculoskeletal: Range of motion: intact in all extremities. Vital Signs: 17:07 BP 132 / 86; Pulse 76; Resp 16; Temp 98.1; Pulse Ox 99% on R/A; Weight 95.25 kg; Height iw 5 ft. 6 in. ; Pain 7/10; 20:23 BP 128 / 82; Pulse 74; Resp 18; Pulse Ox 100% on R/A; mb9 17:07 Body Mass Index 33.89 (95.25 kg, 167.64 cm) iw 17:07 Pain Scale: Adult iw ED Course: 16:47 Patient arrived in ED. mg5 17:06 Fan Kan PA is PHCP. cp 17:06 Karen Rangel MD is Attending Physician. cp 17:08 Triage completed. iw 17:09 Arm band placed on. iw 17:54 XRAY Finger-Thumb RIGHT In Process Unspecified. EDMS 20:21 No provider procedures requiring assistance completed. Patient did not have IV access mb9 during this emergency room visit. Administered Medications: 17:45 Drug: Ibuprofen PO 800 mg PO once Route: PO; jl7 17:45 Drug: HYDROcodone-acetaminophen PO 5 mg-325 mg 1 tabs PO once Route: PO; jl7 18:00 Drug: Bupivacaine Infiltration (0.5 %) 10 ml 10 ml Infiltration once {Note: jl7 administered by ERP.} Volume: 10 ml; Route: Infiltration; 18:00 Drug: Lidocaine Infiltration (1 %) 10 ml 20 ml Infiltration once; to bedside {Note: jl7 administered by ERP.} Volume: 20 ml; Route: Infiltration; 18:01 CANCELLED (Duplicate Order): tetanus toxoid,adsorbed0.5 ml IM once; Provide Vaccine jl7 Information Statement (VIS). 18:01 Drug: Boostrix Tdap IM 0.5 ml IM once; as a single dose Route: IM; Site: left deltoid; jl7 20:12 Drug: Amoxicillin-Clavulanate PO 875 mg PO once Route: PO; mb9 Medication: 20:22 VIS not applicable for this client. mb9 Outcome: 19:52 Discharge ordered by . cp 20:22 Discharged to home ambulatory, mb9 20:22 Condition: stable 20:22 Discharge instructions given to patient, Instructed on discharge instructions, follow up and referral plans. Demonstrated understanding of instructions, follow-up care, medications, Prescriptions given X 3, 20:23 Patient left the ED. mb9 Signatures: Dispatcher [employer] EDMariposa Guthrie RN RN iw Fan Kan PA PA cp Leal, Jahala, RN RN jl7 Alma Rice RN RN mb9 Ambar Estrella mg5 Corrections: (The following items were deleted from the chart) 17:09 17:08 Allergies: Aspirin; demetrio atkinson
[2023-02-20] MEDS ORDERED: SMZ./TMP. 800/160 MG TABLET ONE (20:25)
[2023-02-20 20:27] VITALS: TEMP 98.1
[2023-02-20 20:28] VITALS: BP 128/82; O2SAT 100
== END 2023-02-20 20:23 | disposition home or self-care (01) ==
LOC: ER 16:44
PROC: 0HQFXZZ Repair Right Hand Skin, External Approach (ICD-10-PCS; principal; 2023-02-20)
DX: S62.630B Displaced fracture of distal phalanx of right index finger, initial encounter for open fracture (principal)
CPT/HCPCS: 73140; 96372; 99284; 12002; J2001